=== PATIENT | female | born 1935 | race Caucasian/White ===

== ENCOUNTER 2022-05-19 08:41 | Outpatient (CLI) | payer MEDICARE, OTHER, SELFPAY ==
[2022-05-19 10:12] LABS: Albumin* 4.2 g/dL (3.3-5.0); Chloride* 103 mmol/L (96-114)
[2022-05-19 10:13] LABS: Potassium* 4.3 mmol/L (3.6-5.1); Sodium* 140 mmol/L (135-149)
[2022-05-19 10:15] LABS: Alkaline Phosphatase* 95 U/L (40-150); Aspartate Amino Transferase* 27 U/L (12-35); Bilirubin Total* 0.7 mg/dL (0.1-1.5); Blood Urea Nitrogen* 16 mg/dL (7-30); Carbon Dioxide* 28 mmol/L (20-32); Cholesterol* 166 mg/dL (90-199); Estimated Glomerular Filt Rate 55 ml/min
[2022-05-19 10:16] LABS: Alanine Aminotransferase* 6 U/L (4-35); Calcium* 9.6 mg/dL (8.4-10.6); Glucose* 88 mg/dL (60-115); HDL Cholesterol* 84 mg/dL (>=50); LDL Cholesterol Calculated 57 mg/dL (<100); Triglycerides* 125 mg/dL (40-149)
[2022-05-19 10:28] LABS: Vitamin D 25 Hydroxy* 53 ng/mL (30-80)
== END 2022-05-19 08:42 | disposition home or self-care (01) ==
PROVIDERS: PCP Family Medicine; Visit Provider Family Medicine
DX: E78.5 Hyperlipidemia, unspecified (principal); R53.83 Other fatigue; E55.9 Vitamin D deficiency, unspecified; G20 Parkinson's disease; K21.9 Gastro-esophageal reflux disease without esophagitis; F32.A Depression, unspecified; F41.9 Anxiety disorder, unspecified
CPT/HCPCS: 80053; 80061; 82306

== ENCOUNTER 2022-12-01 11:00 | Outpatient (RCR) | payer MEDICARE, OTHER, SELFPAY | END 2023-04-13 23:59 | disposition home or self-care (01) | PROVIDERS: PCP Family Medicine; Visit Provider Psychiatry & Neurology Neurology | DX: R47.02 Dysphasia (principal); Z51.89 Encounter for other specified aftercare | CPT/HCPCS: 92507; 92524 ==

== ENCOUNTER 2023-03-15 17:25 | Emergency (ER) | payer MEDICARE, OTHER, SELFPAY ==
[2023-03-15 17:29] VITALS: BP 157/79; PULSE 65; RESP 20; TEMP 36.4; O2SAT 100; BMI 23.3
--- NOTE | 2023-03-15 17:42 | ED.HEATRA ---
HPI - Head Injury General Time Seen by Provider: 17:42 Date Seen: 03/15/23 Chief complaint: Head Injury/Pain Stated complaint: Fall, hit head, laceration forehead Time Seen by Provider: 03/15/23 17:34 Source: patient and RN notes reviewed Mode of arrival: ambulatory Limitations: no limitations History of Present Illness HPI Narrative: Jasmin is an 88-year-old female with underlying Parkinson's disease that was in the garden and fell. She lost her balance, fell forward, hitting the left front side of her head and her left shoulder. She does not believe she lost consciousness. She has no internal headache but states the external head where she has a wound is sore. She is sure her tetanus is up-to-date within the last 10 years. She does endorse falling due to her Parkinson's, she shows me healing bruising on her right shoulder where she had a recent fall. She has left frontal head pain, sustained a superficial abrasion on her for red and then a smaller 1 on the upper portion of the zygomatic arch. Denies any visual changes, no neck pain. Denies any numbness tingling anywhere, no focal weakness. No other area was injured on discussion. They are wondering about a head CT. No blood thinners. MD Complaint: head injury and fall Onset (ago): minute(s) Mechanism of Injury: fall Place: home Loss of Consciousness: no Location of injury: frontal and face (small abrasion upper outer zygoma on left) Associated symptoms: denies other symptoms Related Data Home Medications Medication Instructions Recorded Confirmed carbidopa 25 mg-levodopa 100 mg 2 tab PO TID 05/26/22 03/15/23 tablet clobetasol 0.05 % topical ointment 1 topical PRN PRN 05/26/22 09/29/22 ketoconazole 2 % topical cream 1 applic topical DAILY 05/26/22 03/15/23 carbidopa 25 mg-levodopa 250 mg 1 tab PO QID 03/15/23 03/15/23 tablet Previous Rx's Medication Instructions Recorded cholecalciferol (vitamin D3) 25 1,000 unit PO DAILY #90 tabs 05/26/22 mcg (1,000 unit) tablet omeprazole 20 mg capsule,delayed 20 mg PO DAILY #90 caps 05/26/22 release rosuvastatin 5 mg tablet 5 mg PO .Bedtime #90 tabs 05/26/22 venlafaxine 225 mg tablet,extended 225 mg PO DAILY #90 tabs 05/26/22 release 24 hr Allergies Allergy/AdvReac Type Severity Reaction Status Date / Time lactose Allergy Intermediate Increased Verified 09/29/22 13:18 mucous accumulation penicillin V AdvReac Intermediate Rash Verified 09/29/22 13:18 Sulfa drugs Allergy Intermediate Headache Uncoded 09/29/22 13:18 Gluten Meal AdvReac Intermediate GI upset Uncoded 09/29/22 13:18 Review of Systems Status of ROS: Reports: 6 or more systems reviewed and unremarkable except as noted in History and below [facility] Medical History (Updated 03/15/23 @ 18:53 by Ericka Posey MD) Malrotation of small intestine (2010) ?Q43.3 - Congenital malformations of intestinal fixation (ICD-10) Adrenal adenoma ?D35.00 - Benign neoplasm of unspecified adrenal gland (ICD-10) Non-cardiac chest pain (05/20/09) ?R07.89 - Other chest pain (ICD-10) Irritable bowel syndrome (2010) ?K58.9 - Irritable bowel syndrome without diarrhea (ICD-10) Hypertension (2016) ?I10 - Essential (primary) hypertension (ICD-10) Headache (2017) ?R51.9 - Headache, unspecified (ICD-10) Collagenous colitis ?K52.831 - Collagenous colitis (ICD-10) Chronic disease anemia ?D63.8 - Anemia in other chronic diseases classified elsewhere (ICD-10) Surgical History (Updated 05/26/22 @ 11:48 by Marian Granados MD) Status post total replacement of hip (2016) ?Z96.649 - Presence of unspecified artificial hip joint (ICD-10) Status post excision of lipoma (09/2019) ?Z98.890 - Other specified postprocedural states (ICD-10) ?Z86.018 - Personal history of other benign neoplasm (ICD-10) History of hysterectomy (1977) ?Z90.710 - Acquired absence of both cervix and uterus (ICD-10) History of esophagogastroduodenoscopy (EGD) (2010) ?Z98.890 - Other specified postprocedural states (ICD-10) History of cholecystectomy (2004) ?Z90.49 - Acquired absence of other specified parts of digestive tract (ICD-10) History of section (1971) ?Z98.891 - History of uterine scar from previous surgery (ICD-10) History of breast biopsy (1986) ?Z98.890 - Other specified postprocedural states (ICD-10) History of appendectomy (1951) ?Z90.49 - Acquired absence of other specified parts of digestive tract (ICD-10) Family History (Updated 04/29/22 @ 08:58 by Kemi Isidro) Mother Stroke Sister Colon cancer, Onset Age: 38 Father Myocardial infarction, Onset Age: 69 Social History (Updated 04/29/22 @ 08:59 by Kemi Isidro) Narrative: Does not drink alcohol Does not have regular exercise regimen , retired from [employer], 4 adult kids Non-smoker Smoking Status: Never smoker Do you use any of these nicotine containing products: None Second hand tobacco smoke exposure: No How often do you have a drink containing alcohol: never AUDIT-C Alcohol total score: 0 Non-prescribed substance use: denies use Little interest or pleasure in doing things: several days Feeling down, depressed, or hopeless: several days Exam Const: Vital Signs, click to edit/add: Vital Signs - 24 hr 03/15/23 17:29 Temperature 97.5 F L Pulse Rate [Pulse Oximeter] 65 Respiratory Rate 20 Blood Pressure [Ri ght Upper Arm] 157/79 H Pulse Oximetry 100 Documenting provider has reviewed patient's vital signs: yes Common normals: no apparent distress, average body habitus, oriented x3, no limitations, healthy appearing and alert General appearance: cooperative, comfortable, well kempt and well developed HENMT: Common normals: hearing grossly normal bilaterally, external ears normal, external nose normal, nasal mucous membranes and turbinates normal, moist oral mucous membranes, oropharynx normal, dentition normal and gingiva normal Nose: external nose normal and nasal mucous membranes and turbinates normal External ear: external ears normal Other: Has superficial abrasion on the left frontal forehead just above left outer eyebrow. Smaller one of skin overlying the upper outer aspect of the zygomatic arch, no notable swelling or bruising at this time, only tender along wound. TMJ opens/closes without difficulty. Eye: Common normals: PERRL, EOMs intact bilaterally, conjunctivae normal and no scleral icterus Conjunctiva: conjunctiva(e) normal Pupil: PERRL Neck & C-Spine: Common normals: full ROM (no midline tenderness), no lymphadenopathy and supple Chest: Common normals: inspection of chest normal and palpation of chest normal Other: Does have bruise that is noted over the lateral clavicle, AC joint. Shoulder has full ROM, is painful over the bruised area. Strength, sensation normal. Resp: Common normals: normal respiratory effort, no retractions, no use of accessory muscles and clear to auscultation bilaterally Auscultation: clear to auscultation bilaterally Cardio: Common normals: regular rate, regular rhythm, S1 normal heart sound, S2 normal heart sound, no gallops, no clicks and no murmurs Rate: regular rate Rhythm: regular rhythm Heart sounds: S1 normal and S2 normal GI: Common normals: Normal to inspection, nondistended, normoactive bowel sounds present, soft to palpation, non-tender, no hepatosplenomegaly and no masses Palpation: soft and no hepatosplenomegaly Neuro: Common normals: oriented x3, moves all extremities, no focal motor deficits and no sensory deficits noted Sensorium/orientation: alert Psych: Appearance: well kempt Course Course Hospital Course: Reviewed neuroimaging for head injury with CT. They really would like to proceed, do believe at age 88, benefits of imaging certainly outweigh any significant risks. We will also xray left shoulder given injury. Reevaluation(s) Time of Reevaluation #1: 19:30 Reevaluation #1: Have reviewed negative head CT imaging and shoulder imaging. They are happy to hear this. Will discharge to home. Vital Signs Vital signs: Initial Vital Signs Temperature 97.5 F L 03/15/23 17:29 Temperature Source Temporal Artery Scan 03/15/23 17:29 Pulse Rate 65 03/15/23 17:29 Respiratory Rate 20 03/15/23 17:29 Blood Pressure 157/79 H 03/15/23 17:29 Blood Pressure Mean 105 03/15/23 17:29 Blood Pressure Position Sitting 03/15/23 17:29 Pulse Oximetry 100 03/15/23 17:29 Vital Signs Temperature 97.5 F L 03/15/23 17:29 Pulse Rate 65 03/15/23 17:29 Respiratory Rate 20 03/15/23 17:29 Blood Pressure 157/79 H 03/15/23 17:29 Pulse Oximetry 100 03/15/23 17:29 Temperature 97.5 F L 03/15/23 17:29 Pulse Rate 65 03/15/23 17:29 Respiratory Rate 20 03/15/23 17:29 Blood Pressure 157/79 H 03/15/23 17:29 Pulse Oximetry 100 03/15/23 17:29 MDM - Head Injury Imaging Data CT scan - head: Attestation: I have reviewed the pertinent imaging results. Radiologist's impression: Patient: JASMIN DUFFY Facility:?[facility] Patient ID:?[id number] Site Patient ID:?[id number]. Site :?[id number] Study:?CT Head W/O-03/15/2023 6:03:40 PM Ordering Physician:Kirsten Barnett Final Report: INDICATION: Fall. TECHNIQUE: Head CT without contrast. COMPARISON: None. FINDINGS: CSF spaces: Within normal limits for age. Brain parenchyma and extra-axial spaces: There are nonspecific low attenuation white matter changes consistent with chronic microvascular disease. No sign of mass, hemorrhage, or midline shift. Skull base and calvarium: The visualized paranasal sinuses and mastoid air cells demonstrate no acute or significant findings. The visualized orbits are grossly unremarkable. No skull fractures. IMPRESSION: No acute intracranial process identified. No skull fractures. No intracranial hemorrhage. Please note that all CT scans at this facility use dose modulation, iterative reconstruction, and/or weight-based dosing when appropriate to reduce radiation dose to as low as reasonably achievable. Dictated by John Cartagena MD @ 03/15/2023 6:46:03 PM (Electronic Signature) XR left shoulder: Attestation: I have reviewed the pertinent imaging results. My impression: I see no acute pathology on my preliminary review of her shoulder x-ray. Radiologist's impression: Patient: JASMIN DUFFY Facility:?[facility] Patient ID:?[id number] Site Patient ID:?[id number]. Site :?[id number] Study:?XRay Shoulder Left 3 view-03/15/2023 6:14:09 PM Ordering Physician:Kirsten Barnett Final Report: INDICATION: Trauma, fall. TECHNIQUE: Left shoulder 3 views. COMPARISON: Left humerus radiographs 09/29/2022. FINDINGS: No acute fractures or malalignment. Mild AC joint degenerative changes. Glenohumeral joint is unremarkable. Soft tissues are unremarkable. IMPRESSION: No acute osseous abnormalities. Dictated by Shoaib Laguerre MD @ 03/15/2023 7:04:47 PM (Electronic Signature) Discharge Plan Discharge Clinical Impression: Acute pain of left shoulder, Abrasion of face, Fall, Closed head injury without loss of consciousness Patient Disposition: Home, Self-Care Condition: Stable Instructions: Fall Prevention for Older Adults (ED), Head Injury (ED), Abrasion (ED), Shoulder Pain (ED) Additional Instructions: Use bacitracin or Vaseline at minimum 3 to 4 times a day to the abrasions on your face. Use this until these wounds are healed. If you are worried about infection starting in these wounds, please seek re-evaluation. Use Tylenol per bottle directions for any discomfort. If you have increasing shoulder pain, do recommend follow-up with her primary care provider and may need to undergo physical therapy. Prescriptions: No Action carbidopa-levodopa 25-100 mg tablet 2 tab PO TID clobetasol 0.05 % ointment 1 topical PRN PRN Rx Instructions: APPLY SPARINGLY TO AFFECTED AREA ketoconazole 2 % cream 1 applic topical DAILY omeprazole 20 mg capsule,delayed release(DR/EC) 20 mg PO DAILY Qty: 90 4RF cholecalciferol (vitamin D3) 25 mcg (1,000 unit) tablet 1,000 unit PO DAILY Qty: 90 4RF rosuvastatin 5 mg tablet 5 mg PO .Bedtime Qty: 90 4RF venlafaxine 225 mg tablet extended release 24hr 225 mg PO DAILY Qty: 90 4RF carbidopa-levodopa 25-250 mg tablet 1 tab PO QID Follow Up/Referrals: Marian Granados MD [Primary Care Provider] - Stand Alone Forms: [employer] Info Instructions
--- NOTE | 2023-03-15 17:51 | CRLHL7_ITS ---
For Patients: As a result of the Century Cures Act, medical imaging exams and procedure reports are released immediately into your electronic medical record. You may view this report before your referring provider. If you have questions, please contact your health care provider. INDICATION: Fall. TECHNIQUE: Head CT without contrast. COMPARISON: None. FINDINGS: CSF spaces: Within normal limits for age. Brain parenchyma and extra-axial spaces: There are nonspecific low attenuation white matter changes consistent with chronic microvascular disease. No sign of mass, hemorrhage, or midline shift. Skull base and calvarium: The visualized paranasal sinuses and mastoid air cells demonstrate no acute or significant findings. The visualized orbits are grossly unremarkable. No skull fractures. IMPRESSION: No acute intracranial process identified. No skull fractures. No intracranial hemorrhage. Please note that all CT scans at this facility use dose modulation, iterative reconstruction, and/or weight-based dosing when appropriate to reduce radiation dose to as low as reasonably achievable. Dictated by John Cartagena MD @ 03/15/2023 6:46:03 PM (Electronically Signed)
--- NOTE | 2023-03-15 17:51 | CRLHL7_ITS ---
For Patients: As a result of the Cures Act, medical imaging exams and procedure reports are released immediately into your electronic medical record. You may view this report before your referring provider. If you have questions, please contact your health care provider. INDICATION: Trauma, fall. TECHNIQUE: Left shoulder 3 views. COMPARISON: Left humerus radiographs 09/29/2022. FINDINGS: No acute fractures or malalignment. Mild AC joint degenerative changes. Glenohumeral joint is unremarkable. Soft tissues are unremarkable. IMPRESSION: No acute osseous abnormalities. Dictated by Shoaib Laguerre MD @ 03/15/2023 7:04:47 PM (Electronically Signed)
[2023-03-15 19:38] VITALS: BP 177/75; PULSE 57; RESP 18; O2SAT 97
== END 2023-03-15 19:41 | disposition home or self-care (01) ==
PROVIDERS: Emergency Provider Family Medicine; PCP Family Medicine
DX: S00.81XA Abrasion of other part of head, initial encounter (principal); M25.512 Pain in left shoulder; S06.0X0A Concussion without loss of consciousness, initial encounter; W19.XXXA Unspecified fall, initial encounter
CPT/HCPCS: 70450; 73030; 99284

== ENCOUNTER 2023-03-17 17:55 | Observation (INO) | payer MEDICARE, OTHER, SELFPAY ==
[2023-03-17] VITALS (37 sets, daily range): BP systolic 137–200; BP diastolic 74–148; PULSE 61–95; RESP 16; TEMP 36.7–37.1; O2SAT 91–100; BMI 23.3; BMI 23.7
--- NOTE | 2023-03-17 18:17 | CRLHL7_ITS ---
For Patients: As a result of the Cures Act, medical imaging exams and procedure reports are released immediately into your electronic medical record. You may view this report before your referring provider. If you have questions, please contact your health care provider. INDICATION: FALL. WEAKNESS. CT CERVICAL SPINE WITHOUT CONTRAST TECHNIQUE: Multidetector axial CT imaging was performed through the cervical spine, without contrast. Sagittal and coronal reconstructions were generated. FINDINGS: No acute fractures are identified. Multilevel degenerative change is noted in the cervical spine, including degenerative disc disease at C5-6 and C6-7, and scattered facet joint degenerative changes. Osseous alignment is within normal limits and no subluxation is seen. Prevertebral soft tissues are unremarkable. Included portions of the airway and lung apices are within normal limits. IMPRESSION: 1. No fracture, subluxation, or other acute finding identified. 2. Cervical spondylosis, as noted above. ILYA LITTLE MD [facility] Please note that all CT scans at this facility use dose modulation, iterative reconstruction, and/or weight-based dosing when appropriate to reduce radiation dose to as low as reasonably achievable. Dictated by: Josh Little MD @ 03/17/2023 19:15:16 (Electronically Signed)
--- NOTE | 2023-03-17 18:21 | CRLHL7_ITS ---
For Patients: As a result of the Cures Act, medical imaging exams and procedure reports are released immediately into your electronic medical record. You may view this report before your referring provider. If you have questions, please contact your health care provider. CLINICAL HISTORY: Fall; weakness. TECHNIQUE: CTA neck with contrast bolus tracking. 3D angiographic rendering using maximum intensity projection (MIP) and images permanently archived. COMPARISON: None available. FINDINGS: The great vessels are patent. The common carotid arteries are patent. The proximal ICAs are patent without signficant stenoses by NASCET criteria. The more distal cervical ICAs are patent. The origins of the vertebral arteries are patent. The cervical segments of the vertebral arteries are patent. IMPRESSION: Patent cervical arterial vasculature without hemodynamically significant luminal stenosis. Please note that all CT scans at this facility use dose modulation, iterative reconstruction, and/or weight-based dosing when appropriate to reduce radiation dose to as low as reasonably achievable. Dictated by Raul Cordova MD @ 03/18/2023 5:23:58 PM (Electronically Signed)
--- NOTE | 2023-03-17 18:21 | CRLHL7_ITS ---
For Patients: As a result of the Century Cures Act, medical imaging exams and procedure reports are released immediately into your electronic medical record. You may view this report before your referring provider. If you have questions, please contact your health care provider. INDICATION: FALL. WEAKNESS. CT HEAD WITHOUT CONTRAST TECHNIQUE: Multiple axial CT images were performed through the head without intravenous contrast administration. COMPARISON: 03/15/[address] FINDINGS: No acute intracranial hemorrhage is identified. No extra-axial collections are evident and there is no mass effect or midline shift. There is mild diffuse age-related brain atrophy. Ventricular size and configuration are within normal limits for the patient`s age. Emmanuel-white differentiation is within normal limits. There is unchanged patchy hypodensity in the periventricular white matter, a nonspecific finding which most likely reflects chronic small vessel ischemic change. No fractures are seen. Included portions of the paranasal sinuses and mastoid air cells are normally aerated. IMPRESSION: 1. No acute intracranial abnormality identified. 2. Mild age-related brain atrophy and white matter hypodensity consistent with chronic small vessel ischemic change. ILYA LITTLE MD [facility] Please note that all CT scans at this facility use dose modulation, iterative reconstruction, and/or weight-based dosing when appropriate to reduce radiation dose to as low as reasonably achievable. Dictated by: Josh Little MD @ 03/17/2023 19:07:18 (Electronically Signed)
--- NOTE | 2023-03-17 18:21 | CRLHL7_ITS ---
For Patients: As a result of the Century Cures Act, medical imaging exams and procedure reports are released immediately into your electronic medical record. You may view this report before your referring provider. If you have questions, please contact your health care provider. CLINICAL HISTORY: Fall; weakness. TECHNIQUE: CTA head with contrast bolus tracking. 3D angiographic rendering using maximum intensity projection (MIP) and images permanently archived. COMPARISON: None available. FINDINGS: The petrous, cavernous, and supraclinoid segments of the internal carotid arteries are patent. The anterior and middle cerebral arteries are patent. The anterior communicating artery is visualized and is within normal limits. The intracranial vertebral arteries, basilar trunk, and posterior cerebral arteries are patent. No intracranial proximal large vessel occlusion or flow-limiting luminal stenosis. No evidence of cerebral aneurysm. No findings to suggest an arterial-venous shunting lesion. IMPRESSION: No intracranial proximal large vessel occlusion, flow-limiting luminal stenosis, or cerebral aneurysm. Please note that all CT scans at this facility use dose modulation, iterative reconstruction, and/or weight-based dosing when appropriate to reduce radiation dose to as low as reasonably achievable. Dictated by Raul Cordova MD @ 03/18/2023 5:26:03 PM (Electronically Signed)
--- NOTE | 2023-03-17 18:27 | ED.GENADULT ---
HPI - General Adult General Chief complaint: Altered Mental Status Stated complaint: fell hit head on 03/15/23 confusion Time Seen by Provider: 03/17/23 18:11 History of Present Illness HPI narrative: Patient has some difficulty finding words so history mostly provided by son. Report a fall a couple of days ago and was feeling fine, did have normal CT at that time, then today just now was outside with daughter?in-law and was not self. Had difficulty talking and finding words. MD called into bedside. 88-year-old woman presenting to the emergency department with son with concern of 1 hour of difficulty with word finding and just being ?goofy?. Was seen here 2 days ago after a closed head injury and fall. Head CT at that time was unremarkable for acute injury. She is not endorsing any particular pain. No fevers. No marked headache. No neck or back pain. No nausea noted. Blood pressures were noted to be elevated. She is not having any focal weakness. This was witnessed onset. For underlying dementia had taken her Sinemet shortly before. Related Data Home Medications Medication Instructions Recorded Confirmed clobetasol 0.05 % topical ointment 1 applic topical PRN PRN 05/26/22 03/18/23 ketoconazole 2 % topical cream 1 applic topical DAILY PRN 05/26/22 03/18/23 carbidopa 25 mg-levodopa 250 mg 1 tab PO QID@08,12,16,20 03/15/23 03/18/23 tablet rosuvastatin 5 mg tablet 5 mg PO HS 03/18/23 03/18/23 venlafaxine 150 mg 150 mg PO DAILY 03/18/23 03/18/23 capsule,extended release 24 hr venlafaxine 75 mg capsule,extended 75 mg PO DAILY 03/18/23 03/18/23 release 24 hr Previous Rx's Medication Instructions Recorded cholecalciferol (vitamin D3) 25 1,000 unit PO DAILY #90 tabs 05/26/22 mcg (1,000 unit) tablet omeprazole 20 mg capsule,delayed 20 mg PO DAILY #90 caps 05/26/22 release aspirin 81 mg tablet,delayed 81 mg PO DAILY #100 tabs 03/18/23 release Allergies Allergy/AdvReac Type Severity Reaction Status Date / Time lactose Allergy Intermediate Increased Verified 03/17/23 19:12 mucous accumulation penicillin V AdvReac Intermediate Rash Verified 03/17/23 19:12 Sulfa drugs Allergy Intermediate Headache Uncoded 03/17/23 19:12 Gluten Meal AdvReac Intermediate GI upset Uncoded 03/17/23 19:12 Review of Systems Status of ROS: Reports: 6 or more systems reviewed and unremarkable except as noted in History and below [facility] Medical History (Updated 03/18/23 @ 13:44 by Jay Garcia MD) Dementia ?F03.90 - Unspecified dementia, unspecified severity, without behavioral disturbance, psychotic disturbance, mood disturbance, and anxiety (ICD-10) Parkinson's disease (2019) ?G20 - Parkinson's disease (ICD-10) Vitamin D deficiency ?E55.9 - Vitamin D deficiency, unspecified (ICD-10) Gastroesophageal reflux disease ?K21.9 - Gastro-esophageal reflux disease without esophagitis (ICD-10) Dyslipidemia ?E78.5 - Hyperlipidemia, unspecified (ICD-10) Depression (~1998) ?F32.A - Depression, unspecified (ICD-10) Anxiety (04/2020) ?F41.9 - Anxiety disorder, unspecified (ICD-10) Anogenital lichen sclerosus ?L90.0 - Lichen sclerosus et atrophicus (ICD-10) Malrotation of small intestine (2010) ?Q43.3 - Congenital malformations of intestinal fixation (ICD-10) Adrenal adenoma ?D35.00 - Benign neoplasm of unspecified adrenal gland (ICD-10) Non-cardiac chest pain (05/20/09) ?R07.89 - Other chest pain (ICD-10) Irritable bowel syndrome (2010) ?K58.9 - Irritable bowel syndrome without diarrhea (ICD-10) Hypertension (2016) ?I10 - Essential (primary) hypertension (ICD-10) Headache (2017) ?R51.9 - Headache, unspecified (ICD-10) Collagenous colitis ?K52.831 - Collagenous colitis (ICD-10) Chronic disease anemia ?D63.8 - Anemia in other chronic diseases classified elsewhere (ICD-10) Surgical History Status post total replacement of hip (2016) ?Z96.649 - Presence of unspecified artificial hip joint (ICD-10) Status post excision of lipoma (09/2019) ?Z98.890 - Other specified postprocedural states (ICD-10) ?Z86.018 - Personal history of other benign neoplasm (ICD-10) History of hysterectomy (1977) ?Z90.710 - Acquired absence of both cervix and uterus (ICD-10) History of esophagogastroduodenoscopy (EGD) (2010) ?Z98.890 - Other specified postprocedural states (ICD-10) History of cholecystectomy (2004) ?Z90.49 - Acquired absence of other specified parts of digestive tract (ICD-10) History of section (1971) ?Z98.891 - History of uterine scar from previous surgery (ICD-10) History of breast biopsy (1986) ?Z98.890 - Other specified postprocedural states (ICD-10) History of appendectomy (1951) ?Z90.49 - Acquired absence of other specified parts of digestive tract (ICD-10) Family History Mother Stroke Sister Colon cancer, Onset Age: 38 Father Myocardial infarction, Onset Age: 69 Social History Narrative: Does not drink alcohol Does not have regular exercise regimen , retired from [employer], 4 adult kids Non-smoker What is your current living situation: I presently have a place to live Problems where you live: no known problems Problems where you live details: n/a In the past 12 months, utilities in danger of being shut off: no In the past 12 mos, have been you worried that your food would run out before you had money to buy more?: never true In the past 12 mos, the food you bought just didn't last and you didn't have money to buy more?: never true Highest level of school completed/degree received: high school graduate Smoking Status: Never smoker Do you use any of these nicotine containing products: None Second hand tobacco smoke exposure: No How often do you have a drink containing alcohol: never How often do you have six or more drinks on one occasion: Never AUDIT-C Alcohol total score: 0 Non-prescribed substance use: denies use Caffeine: Yes How often does anyone, including family, friends and others, physically hurt you: How often does anyone, including family, friends and others, insult or talk down to you: How often does anyone, including family, friends and others, threaten you with harm: How often does anyone, including family, friends and others, scream or curse at you: Little interest or pleasure in doing things: several days Feeling down, depressed, or hopeless: several days service: No Exam Narrative: Exam Narrative: Pleasant. NAD. Does seem a little confused. Demonstrating mild expressive aphasia. Subtle slurring perhaps to her words. She is moving all extremities without difficulty. They are well perfused. There is a bruise on the right mid forearm. She has marked bruising above the left eye/left brow area. Cranial nerves 2-12 are intact. Elevated heart rate in a regular rhythm. Lungs appear to be clear. Abdomen is protuberant soft nontender. No fluid in external ear canals. Const: Vital Signs, click to edit/add: Vital Signs - 24 hr 03/17/23 18:16 03/17/23 18:19 03/17/23 18:20 Temperature 98.8 F Pulse Rate 80 71 Pulse Rate [Pulse Oximeter] 95 Respiratory Rate 16 Blood Pressure 149/85 H Blood Pressure [Ri ght Upper Arm] 149/85 H Pulse Oximetry 95 99 100 Oxygen Delivery Me thod Room Air 03/17/23 18:50 03/17/23 18:51 03/17/23 18:55 Temperature Pulse Rate 81 83 73 Pulse Rate [Pulse Oximeter] Respiratory Rate Blood Pressure 176/79 H 170/80 H Blood Pressure [Ri ght Upper Arm] Pulse Oximetry 100 99 98 Oxygen Delivery Me thod 03/17/23 19:00 03/17/23 19:01 03/17/23 19:02 Temperature Pulse Rate 77 67 61 Pulse Rate [Pulse Oximeter] Respiratory Rate Blood Pressure 162/75 H Blood Pressure [Ri ght Upper Arm] Pulse Oximetry 100 97 92 Oxygen Delivery Me thod 03/17/23 19:15 03/17/23 19:16 03/17/23 19:17 Temperature Pulse Rate 75 78 67 Pulse Rate [Pulse Oximeter] Respiratory Rate Blood Pressure 169/86 H Blood Pressure [Ri ght Upper Arm] Pulse Oximetry 98 99 98 Oxygen Delivery Me thod 03/17/23 19:30 03/17/23 19:32 03/17/23 19:45 Temperature Pulse Rate 77 76 79 Pulse Rate [Pulse Oximeter] Respiratory Rate Blood Pressure 168/82 H Blood Pressure [Ri ght Upper Arm] Pulse Oximetry 91 94 98 Oxygen Delivery Me thod 03/17/23 19:46 03/17/23 20:00 03/17/23 20:01 Temperature Pulse Rate 73 69 79 Pulse Rate [Pulse Oximeter] Respiratory Rate Blood Pressure 172/85 H 178/82 H Blood Pressure [Ri ght Upper Arm] Pulse Oximetry 98 100 99 Oxygen Delivery Me thod 03/17/23 20:22 03/17/23 20:23 Temperature Pulse Rate 83 82 Pulse Rate [Pulse Oximeter] Respiratory Rate Blood Pressure 200/96 H Blood Pressure [Ri ght Upper Arm] Pulse Oximetry 97 98 Oxygen Delivery Me thod Documenting provider has reviewed patient's vital signs: yes Course Course Hospital Course: 88-year-old female admitted to the hospital with an episode of expressive aphasia and altered mental status. This resolved relatively early into her hospital admission. Evaluation included emergent head CT and CT angiogram which were unremarkable. Brain MRI showed atrophy and chronic age related changes without evidence of stroke. She had no recurrent symptoms during hospital stay. Therapy evaluated her and noted that she was somewhat unsteady walking with a walker. Apparently does not reliably use a walker at home. There was a question of whether this could be related to a concussion from a fall that occurred 2 days prior to admission. Initially recommended that there be standby assistance for her when she was up with her walker. She also had a Meade score of 13/30. There was a question of whether this was her best effort and recommendation was that there be outpatient follow-up and possibly repeating this in the future. Though this may not have been her best effort it is likely that she has dementia which is probably progressive. I discussed with patient and family the likelihood that she would need increased assistance. At this time we are recommending assistance with medications and closer supervision in the home. Will have PT and OT and home nursing go into her home to assess for safety and improve mobility Vital Signs Vital signs: Initial Vital Signs Temperature 98.8 F 03/17/23 18:16 Temperature Source Temporal Artery Scan 03/17/23 18:16 Pulse Rate 95 03/17/23 18:16 Respiratory Rate 16 03/17/23 18:16 Blood Pressure 149/85 H 03/17/23 18:16 Blood Pressure Mean 106 H 03/17/23 18:16 Pulse Oximetry 95 03/17/23 18:16 Oxygen Delivery Method Room Air 03/17/23 18:16 Vital Signs Temperature 98.8 F 03/17/23 18:16 Pulse Rate 95 03/17/23 18:16 Respiratory Rate 16 03/17/23 18:16 Blood Pressure 149/85 H 03/17/23 18:16 Pulse Oximetry 95 03/17/23 18:16 Oxygen Delivery Method Room Air 03/17/23 18:16 Temperature 98 F 03/18/23 11:00 Pulse Rate 66 03/18/23 11:00 Respiratory Rate 16 03/18/23 11:00 Blood Pressure 138/88 03/18/23 11:00 Pulse Oximetry 96 03/18/23 11:00 Oxygen Delivery Method Room Air 03/18/23 11:00 Medical Decision Making MDM Narrative Medical decision making narrative: Does appear to have some stroke-like symptoms. Recent fall certainly raises concern for intracranial bleed however symptoms seem more consistent with ischemic CVA or possibly more global affected by an infectious or electrolyte abnormalities. This could also be dementia-related. Will stab wish IV. Will be receiving a L of normal saline. Monitored. Labs pending. On reassessment now about 2-1/2 hours from onset. Nearly entire L is in. This seems to have more energy. Articulating her words more clearly. More fluid with thought/expression. Son still feels she is having trouble with some mild difficulty with word finding occasionally. Labs are essentially unremarkable. Had been waiting for urinalysis which looks normal. Discussed with Neurology. Recommending for admission next level imaging and continuing stroke workup. Unclear if this is related to dementia or ischemic event. Lab Data Lab results reviewed: Yes I reviewed the patient's lab results Labs: Lab Results 03/17/23 03/17/23 Range/Units 18:30 20:20 WBC 5.32 (4.50-11.00) K/uL RBC 3.83 L (4.00-5.20) m/uL Hgb 11.9 L (12.0-16.0) gm/dL Hct 36.9 (33.0-51.0) % MCV 96 (80-100) fL MCH 31 (26-34) pg MCHC 32 (32-36) gm/dL RDW Coeff of Jackelyn 12.9 (11.5-15.5) % Plt Count 194 (140-440) K/uL Neut % (Auto) 56.7 (42.0-72.0) % Lymph % (Auto) 30.5 (20-44) % [place] % (Auto) 8.8 (0.0-11.0) % Eos % (Auto) 3.4 (0.0-7.0) % Baso % (Auto) 0.6 (0.0-3.0) % Neut # (Auto) 3.02 (1.7-7.0) K/uL Lymph # (Auto) 1.62 (0.90-2.90) K/uL [place] # (Auto) 0.50 (0.00-0.90) K/UL Eos # (Auto) 0.18 (0.00-0.50) K/uL Baso # (Auto) 0.03 (0.00-0.30) K/uL Sodium 137 (135-149) mmol/L Potassium 4.0 (3.6-5.1) mmol/L Chloride 102 (96-114) mmol/L Carbon Dioxide 29 (20-32) mmol/L BUN 19 (7-30) mg/dL Creatinine 0.9 (0.5-1.5) mg/dL Estimated Creat Clear 36.34 Estimated GFR 62 ml/min Glucose 97 (60-115) mg/dL Calcium 9.9 (8.4-10.6) mg/dL Magnesium 1.9 (1.5-2.6) mg/dL Total Bilirubin 0.8 (0.1-1.5) mg/dL Direct Bilirubin 0.3 (0.0-0.5) mg/dL AST 35 (12-35) U/L ALT 9 (4-35) U/L Alkaline Phosphatase 85 (40-150) U/L Troponin I < 0.01 L (0.01-0.04) ng/mL C-Reactive Protein < 0.5 L (0.5-1.0) mg/dL NT-Pro-B Natriuret Pep 223 pg/mL Total Protein 7.2 (6.0-8.3) g/dL Albumin 4.4 (3.3-5.0) g/dL TSH 2.880 (0.270-4.20) uIU/mL Urine Color Yellow (Yellow) Urine Appearance Clear (Clear) Urine pH 8.5 (5.0-8.5) Ur Specific [place] 1.010 (1.000-1.030) Urine Protein Negative (Negative) Urine Glucose (UA) Negative (Negative) Urine Ketones Trace A (Negative) Urine Blood Negative (Negative) Urine Nitrite Negative (Negative) Urine Bilirubin Negative (Negative) Urine Urobilinogen 0.2 (0.2-1.0) Ur Leukocyte Esterase Negative (Negative) Urine RBC 0-2 (0-2) Urine WBC 0-2 (0-5) Ur Squamous Epith Cells None (None-Few) Urine Bacteria None (None) Ethyl Alcohol < 0.01 L (0.01-0.03) % ECG Data Attestation: I personally reviewed and interpreted this ECG as follows: (Sinus rhythm. Premature ventricular contraction. Rate of 75. I do not appreciate ischemic changes otherwise) Critical Care Time Critical Care Time Critical Care Time: Yes Attestation: The patient required my highest level preparedness to intervene emergently and I personally spent this critical care time directly and personally managing the patient. This critical care time included: Obtaining a history; Examining the patient; Pulse oximetry; Ordering and reviewing of studies; Arranging urgent treatment with development of a management plan; Evaluation of patients response to treatment; Frequent reassessment discussions with other providers. This critical care time was performed to assess and manage the high probability of imminent life-threatening deterioration that could result in multiorgan failure. It was exclusive of separate billable procedures and treating other patients and teaching time. Total Critical Care Time in Minutes: 45 Discharge Plan Discharge Clinical Impression: Expressive aphasia, AMS (altered mental status) Patient Disposition: Admitted As Inpatient Condition: Improved Activity Level: No Restrictions and Use Walker Discharge Diet: Regular
[2023-03-17 18:43] LABS: Basophils Absolute Auto 0.03 K/uL (0.00-0.30); Basophils Percent Auto 0.6 % (0.0-3.0); Eosinophils Absolute Auto 0.18 K/uL (0.00-0.50); Eosinophils Percent Auto 3.4 % (0.0-7.0); Hematocrit 36.9 % (33.0-51.0); Hemoglobin* 11.9 gm/dL (12.0-16.0); Lymphocytes Absolute Auto 1.62 K/uL (0.90-2.90); Lymphocytes Percent Auto 30.5 % (20-44); Mean Corpuscular HGB Conc 32 gm/dL (32-36); Mean Corpuscular Hemoglobin 31 pg (26-34); Mean Corpuscular Volume 96 fL (80-100); Monocytes Percent Auto 8.8 % (0.0-11.0); Neutrophils Absolute Auto 3.02 K/uL (1.7-7.0); Neutrophils Percent Auto 56.7 % (42.0-72.0); Platelet Count* 194 K/uL (140-440); RDW Coefficient of Variation % 12.9 % (11.5-15.5); Red Blood Count 3.83 m/uL (4.00-5.20); White Blood Count* 5.32 K/uL (4.50-11.00)
[2023-03-17 18:51] LABS: Slide Review Reflex No
[2023-03-17] MEDS: 0.9 % SODIUM CHLORIDE 1000 ml 1,000 ML IV (18:57)
[2023-03-17 19:07] LABS: Albumin* 4.4 g/dL (3.3-5.0); Chloride* 102 mmol/L (96-114); Sodium* 137 mmol/L (135-149)
[2023-03-17 19:10] LABS: Carbon Dioxide* 29 mmol/L (20-32); Creatinine* 0.9 mg/dL (0.5-1.5); Est. Creatinine Clearance* 36.34; Estimated Glomerular Filt Rate 62 ml/min
[2023-03-17 19:11] LABS: Alanine Aminotransferase* 9 U/L (4-35); Alkaline Phosphatase* 85 U/L (40-150); Aspartate Amino Transferase* 35 U/L (12-35); Bilirubin Direct* 0.3 mg/dL (0.0-0.5); Bilirubin Total* 0.8 mg/dL (0.1-1.5); Blood Urea Nitrogen* 19 mg/dL (7-30); Calcium* 9.9 mg/dL (8.4-10.6); Glucose* 97 mg/dL (60-115); Magnesium* 1.9 mg/dL (1.5-2.6); Total Protein* 7.2 g/dL (6.0-8.3)
[2023-03-17 19:13] LABS: Ethanol* < 0.01 % (0.01-0.03)
[2023-03-17 19:18] LABS: C Reactive Protein* < 0.5 mg/dL (0.5-1.0); NT Pro B Type NatriureticPept* 223 pg/mL
[2023-03-17 19:21] LABS: Troponin I* < 0.01 ng/mL (0.01-0.04)
[2023-03-17 20:31] LABS: Appearance Urine Clear (Clear); Bilirubin Urine Negative (Negative); Blood Urine Negative (Negative); Color Urine Yellow (Yellow); Glucose Urine Negative (Negative); Ketones Urine Trace (Negative); Leukocyte Esterase Urine Negative (Negative); Nitrite Urine Negative (Negative); Protein Urine Negative (Negative); Urobilinogen Urine 0.2 (0.2-1.0); pH Urine 8.5 (5.0-8.5)
[2023-03-17 20:39] LABS: RBC Urine 0-2 (0-2); WBC Urine 0-2 (0-5)
--- NOTE | 2023-03-17 22:58 | P.IMHP_ITS ---
Hospitalist- H&P: HPI History of Present Illness Time Seen by Provider: 21:30 Date Seen: 03/17/23 Chief complaint: Transient episode of expressive aphasia Narrative: Jasmin Rice is a 88 year old woman for the most part was in her usual state of health until 5:30 p.m. today. At that time she was sitting outdoors and stood up to go back in the house when her noticed she was not speaking per usual. She seemed not able to find the words that she was looking for. He decided to bring her in promptly to the emergency department. He thought perhaps she seemed a little more confused than usual as well. By the time she arrived here her symptoms were already starting to improve. By the time I see her this evening she, her , and their son indicate that her symptoms have all totally abated. Denies headache. Denies any other cranial nerve involvement. No other focal motor neurologic deficits either. Has baseline difficulties with walking which family ascribes to her known Parkinson disease. Remarkably 2 days ago she did stumble and fall while gardening and struck her head. Did not have loss of consciousness. Sustained a contusion with residual ecchymoses about her left eye and forehead and cheek. Evaluation emergency department was negative including CT scan. Has been doing well since then. Review of Systems Status of ROS: Reports: 10 or more systems reviewed and unremarkable except as noted in History and below Narrative: Denies chest heaviness, pressure, tightness, or pain. Denies dyspnea at rest, paroxysmal nocturnal dyspnea, orthopnea. Denies syncope or near-syncope. Denies orthostasis, lightheadedness, vertigo. Denies nausea vomiting. Denies fevers, rigors, diaphoresis. Denies edema or claudication. Denies palpitations or chest fluttering. Bowel and bladder habits are satisfactory. No recent weight gain or weight loss. Denies night sweats. Eating and drinking well. Denies dysphagia, odynophagia, dyspepsia, abdominal pain, diarrhea, or constipation. Denies dysuria, urgency, frequency, hematuria. Denies polyuria, polydipsia, polyphagia. Denies heat or cold intolerance. Denies myalgias, arthralgias. Acknowledges baseline difficulty with walking which she ascribes to her Parkinson's disease. Takes her medications as prescribed. Requests full resuscitation in the event of cardiopulmonary demise. Designates her , Guillermo Francis, as her power of civil attorney for health should that be required. [facility] Medical History (Updated 03/17/23 @ 23:12 by Nader Lopez MD) Parkinson's disease (2019) ?G20 - Parkinson's disease (ICD-10) Vitamin D deficiency ?E55.9 - Vitamin D deficiency, unspecified (ICD-10) Gastroesophageal reflux disease ?K21.9 - Gastro-esophageal reflux disease without esophagitis (ICD-10) Dyslipidemia ?E78.5 - Hyperlipidemia, unspecified (ICD-10) Depression (~1998) ?F32.A - Depression, unspecified (ICD-10) Anxiety (04/2020) ?F41.9 - Anxiety disorder, unspecified (ICD-10) Anogenital lichen sclerosus ?L90.0 - Lichen sclerosus et atrophicus (ICD-10) Malrotation of small intestine (2010) ?Q43.3 - Congenital malformations of intestinal fixation (ICD-10) Adrenal adenoma ?D35.00 - Benign neoplasm of unspecified adrenal gland (ICD-10) Non-cardiac chest pain (05/20/09) ?R07.89 - Other chest pain (ICD-10) Irritable bowel syndrome (2010) ?K58.9 - Irritable bowel syndrome without diarrhea (ICD-10) Hypertension (2016) ?I10 - Essential (primary) hypertension (ICD-10) Headache (2016) ?R51.9 - Headache, unspecified (ICD-10) Collagenous colitis ?K52.831 - Collagenous colitis (ICD-10) Chronic disease anemia ?D63.8 - Anemia in other chronic diseases classified elsewhere (ICD-10) Surgical History Status post total replacement of hip (2016) ?Z96.649 - Presence of unspecified artificial hip joint (ICD-10) Status post excision of lipoma (09/2019) ?Z98.890 - Other specified postprocedural states (ICD-10) ?Z86.018 - Personal history of other benign neoplasm (ICD-10) History of hysterectomy (1977) ?Z90.710 - Acquired absence of both cervix and uterus (ICD-10) History of esophagogastroduodenoscopy (EGD) (2010) ?Z98.890 - Other specified postprocedural states (ICD-10) History of cholecystectomy (2004) ?Z90.49 - Acquired absence of other specified parts of digestive tract (ICD- 10) History of section (1971) ?Z98.891 - History of uterine scar from previous surgery (ICD-10) History of breast biopsy (1986) ?Z98.890 - Other specified postprocedural states (ICD-10) History of appendectomy (1951) ?Z90.49 - Acquired absence of other specified parts of digestive tract (ICD- 10) Family History Mother Stroke Sister Colon cancer, Onset Age: 38 Father Myocardial infarction, Onset Age: 69 Social History Narrative: Does not drink alcohol Does not have regular exercise regimen , retired from [employer], 4 adult kids Non-smoker Smoking Status: Never smoker Do you use any of these nicotine containing products: None Second hand tobacco smoke exposure: No How often do you have a drink containing alcohol: never AUDIT-C Alcohol total score: 0 Non-prescribed substance use: denies use Little interest or pleasure in doing things: several days Feeling down, depressed, or hopeless: several days Meds Home Medications and Allergies Home Medications Medication Instructions Recorded Confirmed Type carbidopa 25 mg-levodopa 100 mg 2 tab PO TID 05/26/22 03/15/23 History tablet clobetasol 0.05 % topical ointment 1 topical PRN PRN 05/26/22 09/29/22 History ketoconazole 2 % topical cream 1 applic topical DAILY 05/26/22 03/15/23 History carbidopa 25 mg-levodopa 250 mg 1 tab PO QID 03/15/23 03/15/23 History tablet Allergies Allergy/AdvReac Type Severity Reaction Status Date / Time lactose Allergy Intermediate Increased Verified 03/17/23 19:12 mucous accumulation penicillin V AdvReac Intermediate Rash Verified 03/17/23 19:12 Sulfa drugs Allergy Intermediate Headache Uncoded 03/17/23 19:12 Gluten Meal AdvReac Intermediate GI upset Uncoded 03/17/23 19:12 Exam Narrative: Exam Narrative: Appears comfortable and in no acute distress. Vision and hearing are grossly normal. Alert, oriented to self, place, time, and in part to situation. Does need to check with her in order to answer some her questions. Friendly, articulate, cooperative. Somewhat anxious. Mood and affect are congruent. Ecchymosis about right eye from fall 2 days ago. No open wounds. Tympanic membranes are normal. No icterus or conjunctival injection. Pupils equally round and reactive to light and accommodation. Extraocular muscles intact. Midline nasal septum. Moist buccal mucosa. Dentition in fair repair. Neck is supple. Midline trachea. No JVD or hepatojugular reflux. No carotid bruits. No head and neck lymphadenopathy. Lungs are clear to auscultation without wheezing, rhonchi, or rales. Chest wall excursions are full. No CVA tenderness or discomfort to palpation over the spine in the back. Heart tones with regular rhythm, normal S1-S2 no murmur, gallop, or rub. PMI is not laterally displaced. Abdomen with active bowel sounds, soft, nontender. No rebound or guarding. No organomegaly or masses. No focal motor neurologic deficits. No tremor, asterixis, or ataxia. Independent transfer, station, and gait. No obvious problems with word finding at this time. Const: Vital Signs, click to edit/add: Vital Signs - 24 hr 03/17/23 18:16 03/17/23 18:19 03/17/23 18:20 Temperature 98.8 F Pulse Rate 80 71 Pulse Rate [Pulse Oximeter] 95 Respiratory Rate 16 Blood Pressure 149/85 H Blood Pressure [Ri ght Upper Arm] 149/85 H Pulse Oximetry 95 99 100 Oxygen Delivery Me thod Room Air 03/17/23 18:50 03/17/23 18:51 03/17/23 18:55 Temperature Pulse Rate 81 83 73 Pulse Rate [Pulse Oximeter] Respiratory Rate Blood Pressure 176/79 H 170/80 H Blood Pressure [Ri ght Upper Arm] Pulse Oximetry 100 99 98 Oxygen Delivery Me thod 03/17/23 19:00 03/17/23 19:01 03/17/23 19:02 Temperature Pulse Rate 77 67 61 Pulse Rate [Pulse Oximeter] Respiratory Rate Blood Pressure 162/75 H Blood Pressure [Ri ght Upper Arm] Pulse Oximetry 100 97 92 Oxygen Delivery Me thod 03/17/23 19:15 03/17/23 19:16 03/17/23 19:17 Temperature Pulse Rate 75 78 67 Pulse Rate [Pulse Oximeter] Respiratory Rate Blood Pressure 169/86 H Blood Pressure [Ri ght Upper Arm] Pulse Oximetry 98 99 98 Oxygen Delivery Me thod 03/17/23 19:30 03/17/23 19:32 03/17/23 19:45 Temperature Pulse Rate 77 76 79 Pulse Rate [Pulse Oximeter] Respiratory Rate Blood Pressure 168/82 H Blood Pressure [Ri ght Upper Arm] Pulse Oximetry 91 94 98 Oxygen Delivery Me thod 03/17/23 19:46 03/17/23 20:00 03/17/23 20:01 Temperature Pulse Rate 73 69 79 Pulse Rate [Pulse Oximeter] Respiratory Rate Blood Pressure 172/85 H 178/82 H Blood Pressure [Ri ght Upper Arm] Pulse Oximetry 98 100 99 Oxygen Delivery Me thod 03/17/23 20:22 03/17/23 20:23 03/17/23 20:24 Temperature Pulse Rate 83 82 80 Pulse Rate [Pulse Oximeter] Respiratory Rate Blood Pressure 200/96 H Blood Pressure [Ri ght Upper Arm] Pulse Oximetry 97 98 99 Oxygen Delivery Me thod 03/17/23 20:30 03/17/23 20:32 03/17/23 20:45 Temperature Pulse Rate 77 75 79 Pulse Rate [Pulse Oximeter] Respiratory Rate Blood Pressure 178/96 H Blood Pressure [Ri ght Upper Arm] Pulse Oximetry 98 98 100 Oxygen Delivery Me thod 03/17/23 20:47 03/17/23 21:00 03/17/23 21:01 Temperature Pulse Rate 75 76 75 Pulse Rate [Pulse Oximeter] Respiratory Rate Blood Pressure 189/95 H 168/148 H Blood Pressure [Ri ght Upper Arm] Pulse Oximetry 94 100 99 Oxygen Delivery Me thod 03/17/23 21:02 03/17/23 21:15 03/17/23 21:16 Temperature Pulse Rate 78 64 64 Pulse Rate [Pulse Oximeter] Respiratory Rate Blood Pressure 175/84 H Blood Pressure [Ri ght Upper Arm] Pulse Oximetry 98 99 100 Oxygen Delivery Me thod 03/17/23 21:30 03/17/23 21:32 03/17/23 21:46 Temperature Pulse Rate 68 62 Pulse Rate [Pulse Oximeter] Respiratory Rate Blood Pressure 154/74 H 139/87 Blood Pressure [Ri ght Upper Arm] Pulse Oximetry 99 99 Oxygen Delivery Me thod 03/17/23 22:01 Temperature Pulse Rate Pulse Rate [Pulse Oximeter] Respiratory Rate Blood Pressure 137/106 H Blood Pressure [Ri ght Upper Arm] Pulse Oximetry Oxygen Delivery Me thod Documenting provider has reviewed patient's vital signs: yes Hospitalist - H&P: Result Labs Labs: Short CBC 03/17/23 Range/Units 18:30 WBC 5.32 (4.50-11.00) K/uL Hgb 11.9 L (12.0-16.0) gm/dL Hct 36.9 (33.0-51.0) % Plt Count 194 (140-440) K/uL BMP 03/17/23 18:30 Sodium 137 Potassium 4.0 Chloride 102 Carbon Dioxide 29 BUN 19 Creatinine 0.9 Glucose 97 Calcium 9.9 Cardiac Enzymes 03/17/23 Range/Units 18:30 Troponin I < 0.01 L (0.01-0.04) ng/mL Liver Function 03/17/23 Range/Units 18:30 Total Bilirubin 0.8 (0.1-1.5) mg/dL Direct Bilirubin 0.3 (0.0-0.5) mg/dL AST 35 (12-35) U/L ALT 9 (4-35) U/L Alkaline Phosphatase 85 (40-150) U/L Albumin 4.4 (3.3-5.0) g/dL Urine 03/17/23 Range/Units 20:20 Urine Color Yellow (Yellow) Urine Appearance Clear (Clear) Urine pH 8.5 (5.0-8.5) Ur Specific [place] 1.010 (1.000-1.030) Urine Protein Negative (Negative) Urine Glucose (UA) Negative (Negative) Assessment and Plan Assessment and plan (1) Expressive aphasia: Problem comment: Transient on 03/17/2023. CT scan of head negative. CT angiogram of head and neck is negative. Will check MR of the head on 03/18/2023. Status: Acute Assessment and Plan: Will add aspirin 81 mg daily. Continue on statin. Physical therapy and occupational therapy to assess. We do not have speech pathologist to see patient over the weekend. Consider outpatient assessment if warranted. (2) AMS (altered mental status): Problem comment: Transient, resolved per patient and family. Status: Acute (3) Hypertension: Problem comment: Blood pressures as high as 210/110 on 03/17/2023. They normalized with time. Continue to monitor in this setting. Status: Acute Assessment and Plan: Allow for permissive hypertension for now. (4) Parkinson's disease: Problem comment: Sees , [facility] Status: Acute Plan 1. Reviewed my impressions with patient, , and son. Answered their questions. Unclear if this is a TIA, small stroke, or related to evolving cognitive decline. 2. They are agreeable with above stated plans and recommendations. Telemetry while in hospital.
[2023-03-18 01:25] VITALS: BP 177/73; PULSE 69; RESP 18; TEMP 36.7; O2SAT 98
[2023-03-18] MEDS: ROSUVASTATIN CALCIUM 10 MG TABLET 5 MG PO (05:22)
--- NOTE | 2023-03-18 05:47 | PC.NURSE ---
Patient admitted to the unit at 2220. A&Ox3. Pleasant and cooperative. Speech is clear and appropriate. Patient acknowledges improvement in speech pattern since coming to the ED. A1/walker/GB. Patient notes weakness. Neuro assessment unremarkable. Denies pain. Denies SOB/CP. Denies dizziness/lightheadedness/N/V/headache. Bruising to L. side of forehead, L. cheek, and L. periorbital region d/t fall at home on Monday.
[2023-03-18 07:02] VITALS: PULSE 64
[2023-03-18 07:15] LABS: Hematocrit 35.2 % (33.0-51.0); Hemoglobin* 11.4 gm/dL (12.0-16.0); Mean Corpuscular HGB Conc 32 gm/dL (32-36); Mean Corpuscular Hemoglobin 31 pg (26-34); Mean Corpuscular Volume 96 fL (80-100); Platelet Count* 179 K/uL (140-440); Red Blood Count 3.66 m/uL (4.00-5.20); White Blood Count* 5.07 K/uL (4.50-11.00)
[2023-03-18 07:30] LABS: Slide Review Reflex No
[2023-03-18 07:33] LABS: Chloride* 106 mmol/L (96-114); Sodium* 137 mmol/L (135-149)
[2023-03-18 07:36] LABS: Blood Urea Nitrogen* 15 mg/dL (7-30); Carbon Dioxide* 26 mmol/L (20-32); Creatinine* 0.8 mg/dL (0.5-1.5); Est. Creatinine Clearance* 36.34; Estimated Glomerular Filt Rate 72 ml/min
[2023-03-18 07:37] LABS: Calcium* 9.7 mg/dL (8.4-10.6); Glucose* 80 mg/dL (60-115)
[2023-03-18 07:41] LABS: C Reactive Protein* < 0.5 mg/dL (0.5-1.0)
--- NOTE | 2023-03-18 08:00 | CRLHL7_ITS ---
For Patients: As a result of the Cures Act, medical imaging exams and procedure reports are released immediately into your electronic medical record. You may view this report before your referring provider. If you have questions, please contact your health care provider. Indication: Transient aphasia. Technique: Multiplanar, multisequence MRI of the brain was performed without intravenous contrast. Comparison: CT head, CTA head and neck 03/17/2023. Findings: Slight thinning of the corpus callosum. The pituitary gland and clivus appear intact. Mild degenerative change visualized upper cervical spine. There is no restricted diffusion. No intracranial hemorrhage. The ventricles are proportionate to the cerebral sulci. The 4th ventricle appears midline. The basal cisterns appear patent. No abnormal extra-axial fluid collection identified. There is no intracranial mass, abnormal mass-effect or midline shift identified. Mild parenchymal volume loss. Moderate to severe T2 FLAIR hyperintense foci within the subcortical and periventricular white matter, favored to represent chronic ischemic microvascular disease. Major intracranial vascular flow voids appear grossly intact. Thinning of the ocular lenses. Mild paranasal sinus mucosal disease. T2 FLAIR hyperintense lesion with reduced diffusion along the left frontoparietal calvarium with scalloping of the outer table. On the accompanying CT there is smooth scalloping, without aggressive periosteal reaction or osseous erosion which favors a nonaggressive lesion. This may represent a hemangioma. Impression: 1. No acute/subacute infarct. 2. Moderate to severe chronic ischemic microvascular disease. Dictated by True Johnson MD @ 03/18/2023 10:14:27 AM (Electronically Signed)
[2023-03-18 08:25] VITALS: BP 186/88; PULSE 74; RESP 18; TEMP 36.8; O2SAT 98
[2023-03-18] MEDS: ASPIRIN 81 MG TABLET EC PO (09:08)
[2023-03-18] MEDS: OMEPRAZOLE 20 MG CAPSULE DR PO (09:09)
[2023-03-18] MEDS: SODIUM CHLORIDE 0.9 % (FLUSH) 10 ML SYRINGE 5 ML IVF (09:13)
[2023-03-18] MEDS: VENLAFAXINE ER 75 MG CAPSULE 225 MG PO (09:16)
[2023-03-18 11:00] VITALS: BP 138/88; PULSE 66; RESP 16; TEMP 36.6; O2SAT 96
--- NOTE | 2023-03-18 13:35 | PM.DS1 ---
DS: Providers Provider Date Seen: 03/18/23 Date of admission: 03/17/23 22:16 Primary care physician: Marian Granados MD Admitting Clinician: Nader Lopez MD Attending Physician on discharge: Aron Garcia MD Date of Discharge: 03/18/23 DS: Diagnosis Discharge Diagnosis (1) AMS (altered mental status): Status: Acute Problem details: Transient, resolved per patient and family. Cause may be multifactorial, dementia, TIA, Parkinson's, concussion (2) Expressive aphasia: Status: Acute Problem details: Transient on 03/17/2023. CT scan of head negative. CT angiogram of head and neck is negative. MRI brain 03/18/2023 shows no acute stroke. Accompanied by altered mental status and resolved with return of normal mental status. Possibly due to multiple factors including TIA, dementia, Parkinson's, concussion (3) Dementia: Status: Acute Problem details: Dallas score of 13/30 03/18/2023. (4) Parkinson's disease: Status: Acute Problem details: Sees , [facility]. (5) Closed head injury without loss of consciousness: Status: Acute Problem details: Fell with head injury 2 days prior to admission. Did not have obvious concussion symptoms until the day of admission with altered mental status and expressive aphasia. Unclear if these events are linked. Imaging shows no evidence of intracranial trauma (6) Fall: Status: Acute Problem details: Therapy notes patient moves too quickly and is not consistently using assistive devices properly DS: Summary Hospital Course Hospital Course: 88-year-old female admitted to the hospital with an episode of expressive aphasia and altered mental status. This resolved relatively early into her hospital admission. Evaluation included emergent head CT and CT angiogram which were unremarkable. Brain MRI showed atrophy and chronic age related changes without evidence of stroke. She had no recurrent symptoms during hospital stay. Therapy evaluated her and noted that she was somewhat unsteady walking with a walker. Apparently does not reliably use a walker at home. There was a question of whether this could be related to a concussion from a fall that occurred 2 days prior to admission. Initially recommended that there be standby assistance for her when she was up with her walker. She also had a Dallas score of 13/30. There was a question of whether this was her best effort and recommendation was that there be outpatient follow-up and possibly repeating this in the future. Though this may not have been her best effort it is likely that she has dementia which is probably progressive. I discussed with patient and family the likelihood that she would need increased assistance. At this time we are recommending assistance with medications and closer supervision in the home. Will have PT and OT and home nursing go into her home to assess for safety and improve mobility Status at Discharge Functional status at discharge: uses cane/walker Overall status at discharge: patient is progressing back to baseline Time Spent with Patient Time attestation: Total time spent providing and/or coordinating discharge services: Time spent: Greater than 30 minutes Exam Narrative: Exam Narrative: She is alert and in no distress. She is oriented to being in the hospital. Speech is normal. No obvious word-finding difficulties. No slurring of her speech. Respirations are unlabored. She has bruising around her left eye and an abrasion on the lens of her glasses over the left eye. She has approximately equal strength bilaterally. Const: Vital Signs, click to edit/add: Vital Signs - 24 hr 03/17/23 18:16 03/17/23 18:19 03/17/23 18:20 Temperature 98.8 F Pulse Rate 80 71 Pulse Rate [Left A pical] Pulse Rate [Pulse Oximeter] 95 Respiratory Rate 16 Blood Pressure 149/85 H Blood Pressure [Ri ght Arm] Blood Pressure [Ri ght Upper Arm] 149/85 H Pulse Oximetry 95 99 100 Oxygen Delivery Me thod Room Air 03/17/23 18:50 03/17/23 18:51 03/17/23 18:55 Temperature Pulse Rate 81 83 73 Pulse Rate [Left A pical] Pulse Rate [Pulse Oximeter] Respiratory Rate Blood Pressure 176/79 H 170/80 H Blood Pressure [Ri ght Arm] Blood Pressure [Ri ght Upper Arm] Pulse Oximetry 100 99 98 Oxygen Delivery Me thod 03/17/23 19:00 03/17/23 19:01 03/17/23 19:02 Temperature Pulse Rate 77 67 61 Pulse Rate [Left A pical] Pulse Rate [Pulse Oximeter] Respiratory Rate Blood Pressure 162/75 H Blood Pressure [Ri ght Arm] Blood Pressure [Ri ght Upper Arm] Pulse Oximetry 100 97 92 Oxygen Delivery Me thod 03/17/23 19:15 03/17/23 19:16 03/17/23 19:17 Temperature Pulse Rate 75 78 67 Pulse Rate [Left A pical] Pulse Rate [Pulse Oximeter] Respiratory Rate Blood Pressure 169/86 H Blood Pressure [Ri ght Arm] Blood Pressure [Ri ght Upper Arm] Pulse Oximetry 98 99 98 Oxygen Delivery Me thod 03/17/23 19:30 03/17/23 19:32 03/17/23 19:45 Temperature Pulse Rate 77 76 79 Pulse Rate [Left A pical] Pulse Rate [Pulse Oximeter] Respiratory Rate Blood Pressure 168/82 H Blood Pressure [Ri ght Arm] Blood Pressure [Ri ght Upper Arm] Pulse Oximetry 91 94 98 Oxygen Delivery Me thod 03/17/23 19:46 03/17/23 20:00 03/17/23 20:01 Temperature Pulse Rate 73 69 79 Pulse Rate [Left A pical] Pulse Rate [Pulse Oximeter] Respiratory Rate Blood Pressure 172/85 H 178/82 H Blood Pressure [Ri ght Arm] Blood Pressure [Ri ght Upper Arm] Pulse Oximetry 98 100 99 Oxygen Delivery Or thod 03/17/23 20:22 03/17/23 20:23 03/17/23 20:24 Temperature Pulse Rate 83 82 80 Pulse Rate [Left A pical] Pulse Rate [Pulse Oximeter] Respiratory Rate Blood Pressure 200/96 H Blood Pressure [Ri ght Arm] Blood Pressure [Ri ght Upper Arm] Pulse Oximetry 97 98 99 Oxygen Delivery Or thod 03/17/23 20:30 03/17/23 20:32 03/17/23 20:45 Temperature Pulse Rate 77 75 79 Pulse Rate [Left A pical] Pulse Rate [Pulse Oximeter] Respiratory Rate Blood Pressure 178/96 H Blood Pressure [Ri ght Arm] Blood Pressure [Ri ght Upper Arm] Pulse Oximetry 98 98 100 Oxygen Delivery Me thod 03/17/23 20:47 03/17/23 21:00 03/17/23 21:01 Temperature Pulse Rate 75 76 75 Pulse Rate [Left A pical] Pulse Rate [Pulse Oximeter] Respiratory Rate Blood Pressure 189/95 H 168/148 H Blood Pressure [Ri ght Arm] Blood Pressure [Ri ght Upper Arm] Pulse Oximetry 94 100 99 Oxygen Delivery Me thod 03/17/23 21:02 03/17/23 21:15 03/17/23 21:16 Temperature Pulse Rate 78 64 64 Pulse Rate [Left A pical] Pulse Rate [Pulse Oximeter] Respiratory Rate Blood Pressure 175/84 H Blood Pressure [Ri ght Arm] Blood Pressure [Ri ght Upper Arm] Pulse Oximetry 98 99 100 Oxygen Delivery Me thod 03/17/23 21:30 03/17/23 21:32 03/17/23 21:46 Temperature Pulse Rate 68 62 Pulse Rate [Left A pical] Pulse Rate [Pulse Oximeter] Respiratory Rate Blood Pressure 154/74 H 139/87 Blood Pressure [Ri ght Arm] Blood Pressure [Ri ght Upper Arm] Pulse Oximetry 99 99 Oxygen Delivery Me thod 03/17/23 22:01 03/17/23 22:20 03/17/23 23:00 Temperature 98.0 F Pulse Rate 65 Pulse Rate [Left A pical] Pulse Rate [Pulse Oximeter] 78 Respiratory Rate 16 Blood Pressure 137/106 H Blood Pressure [Ri ght Arm] 154/81 H Blood Pressure [Ri ght Upper Arm] Pulse Oximetry 95 Oxygen Delivery Me thod Room Air 03/17/23 23:00 03/17/23 23:03 03/18/23 01:25 Temperature 98.0 F 98.0 F Pulse Rate Pulse Rate [Left A pical] Pulse Rate [Pulse Oximeter] 78 69 Respiratory Rate 16 16 18 Blood Pressure Blood Pressure [Ri ght Arm] 154/81 H 177/73 H Blood Pressure [Ri ght Upper Arm] Pulse Oximetry 98 95 98 Oxygen Delivery Me thod Room Air Room Air Room Air 03/18/23 08:25 03/18/23 08:25 03/18/23 11:00 Temperature 98.2 F 98 F Pulse Rate Pulse Rate [Left A pical] 74 66 Pulse Rate [Pulse Oximeter] 74 66 Respiratory Rate 18 18 16 Blood Pressure Blood Pressure [Ri ght Arm] 186/88 H 138/88 Blood Pressure [Ri ght Upper Arm] Pulse Oximetry 98 98 96 Oxygen Delivery Me thod Room Air Room Air Room Air Documenting provider has reviewed patient's vital signs: yes DS: Data Data Completed and Pending Labs on day of discharge: Labs from last 24 hours 03/18/23 03/17/23 03/17/23 06:39 20:20 18:30 WBC 5.07 5.32 RBC 3.66 L 3.83 L Hgb 11.4 L 11.9 L Hct 35.2 36.9 MCV 96 96 MCH 31 31 MCHC 32 32 RDW Coeff of Jackelyn 12.9 Plt Count 179 194 Neut % (Auto) 56.7 Lymph % (Auto) 30.5 [place] % (Auto) 8.8 Eos % (Auto) 3.4 Baso % (Auto) 0.6 Neut # (Auto) 3.02 Lymph # (Auto) 1.62 [place] # (Auto) 0.50 Eos # (Auto) 0.18 Baso # (Auto) 0.03 Sodium 137 137 Potassium 4.0 4.0 Chloride 106 102 Carbon Dioxide 26 29 BUN 15 19 Creatinine 0.8 0.9 Estimated Creat Clear 36.34 36.34 Estimated GFR 72 62 Glucose 80 97 Calcium 9.7 9.9 Magnesium 1.9 Total Bilirubin 0.8 Direct Bilirubin 0.3 AST 35 ALT 9 Alkaline Phosphatase 85 Troponin I < 0.01 L C-Reactive Protein < 0.5 L < 0.5 L NT-Pro-B Natriuret Pep 223 Total Protein 7.2 Albumin 4.4 TSH 7.530 H 2.880 Urine Color Yellow Urine Appearance Clear Urine pH 8.5 Ur Specific Leighton 1.010 Urine Protein Negative Urine Glucose (UA) Negative Urine Ketones Trace A Urine Blood Negative Urine Nitrite Negative Urine Bilirubin Negative Urine Urobilinogen 0.2 Ur Leukocyte Esterase Negative Urine RBC 0-2 Urine WBC 0-2 Ur Squamous Epith Cells None Urine Bacteria None Ethyl Alcohol < 0.[address] scan - head: Radiologist's impression: INDICATION: FALL. WEAKNESS. CT HEAD WITHOUT CONTRAST TECHNIQUE:? Multiple axial CT images were performed through the head without intravenous contrast administration. COMPARISON:? 03/15/[address] FINDINGS:? No acute intracranial hemorrhage is identified.? No extra-axial collections are evident and there is no mass effect or midline shift.? There is mild diffuse age-related brain atrophy.? Ventricular size and configuration are within normal limits for the patient`s age.? Emmanuel-white differentiation is within normal limits.? There is unchanged patchy hypodensity in the periventricular white matter, a nonspecific finding which most likely reflects chronic small vessel ischemic change. ? No fractures are seen.? Included portions of the paranasal sinuses and mastoid air cells are normally aerated. IMPRESSION:? 1. No acute intracranial abnormality identified. 2. Mild age-related brain atrophy and white matter hypodensity consistent with chronic small vessel ischemic change.? ? ILYA LITTLE MD MR Brain: Radiologist's impression: Technique: Multiplanar, multisequence MRI of the brain was performed without intravenous contrast. Comparison: CT head, CTA head and neck 03/17/2023. Findings: Slight thinning of the corpus callosum. The pituitary gland and clivus appear intact. Mild degenerative change visualized upper cervical spine. There is no restricted diffusion. No intracranial hemorrhage. The ventricles are proportionate to the cerebral sulci. The 4th ventricle appears midline. The basal cisterns appear patent. No abnormal extra-axial fluid collection identified. There is no intracranial mass, abnormal mass-effect or midline shift identified. Mild parenchymal volume loss. Moderate to severe T2 FLAIR hyperintense foci within the subcortical and periventricular white matter, favored to represent chronic ischemic microvascular disease. Major intracranial vascular flow voids appear grossly intact. Thinning of the ocular lenses. Mild paranasal sinus mucosal disease. T2 FLAIR hyperintense lesion with reduced diffusion along the left frontoparietal calvarium with scalloping of the outer table. On the accompanying CT there is smooth scalloping, without aggressive periosteal reaction or osseous erosion which favors a nonaggressive lesion. This may represent a hemangioma. Impression: 1. No acute/subacute infarct. 2. Moderate to severe chronic ischemic microvascular disease. Discharge Plan Discharge Disposition: Home, Self-Care Date of Admission: 03/17/23 22:16 Attending Provider on Discharge: Jay Garcia Primary Care Provider: Marian Granados Condition: Improved Anticipated Discharge Date/Time: 03/18/23 13:00 Discharge Medications: New aspirin 81 mg Tablet,Delayed Release (Dr/Ec) 81 mg PO DAILY Qty: 100 0RF Continued clobetasol 0.05 % ointment 1 applic topical PRN PRN Rx Instructions: APPLY SPARINGLY TO AFFECTED AREA ketoconazole 2 % cream 1 applic topical DAILY PRN omeprazole 20 mg capsule,delayed release(DR/EC) 20 mg PO DAILY Qty: 90 4RF cholecalciferol (vitamin D3) 25 mcg (1,000 unit) tablet 1,000 unit PO DAILY Qty: 90 4RF carbidopa-levodopa 25-250 mg tablet 1 tab PO QID@08,12,16,20 venlafaxine 75 mg capsule,extended release 24hr 75 mg PO DAILY Patient Comments: TOTAL DOSE = 225MG venlafaxine 150 mg capsule,extended release 24hr 150 mg PO DAILY Patient Comments: TOTAL DOSE = 225MG rosuvastatin 5 mg tablet 5 mg PO HS Discharge Orders: Discharge Order (Routine); Ordered 03/18/23 Ordered By: Jay Garcia Patient Education: Aspirin (By mouth), Transient Ischemic Attack (DC) Additional Instructions: We recommend family to set up medications in a pillbox and supervise medication administration. Activity Level: No Restrictions and Use Walker Discharge Diet: Regular Follow Up Appointments: Marian Granados MD [Primary Care Provider] - 03/23/23 9:30 am ([facility]) Forms: [employer] Info Instructions
--- NOTE | 2023-03-18 14:18 | PC.NURSE ---
Pt's tele indicates NSR. She was taken to MRI via w/c this am. Slept after testing and am meds provided. Eval by Dr. Garcia who reviewed test results with patient/spouse and son John. Eval by Malu DARNELL for mini MOCA. IV discontinued. Pt, spouse and son verbalized understanding of d/c diagnosis, home meds, new RX, f/up appt and sx to report urgently to physician. Discharged via w/c to own home w/personal belongings w/spouse Andrey and son John @ 1410 pm.
--- NOTE | 2023-03-22 10:22 | PC.SOCIAL ---
Pt. needs home care. Called [facility], [facility], [facility], [facility], [facility] and [facility]. None have the staffing to serve [facility]. [facility] can accommodate the week of April 03. Orders have been sent and pt's spouse was updated that [facility] would start the week of April 03.
== END 2023-03-18 14:10 | disposition home or self-care (01) ==
LOC: ED 21:36 → MEDSURG 22:17
PROVIDERS: Admitting Provider Internal Medicine; Emergency Provider Family Medicine; PCP Family Medicine; Visit Provider Internal Medicine
DX: R41.82 Altered mental status, unspecified (principal); R47.01 Aphasia; F03.90 Unspecified dementia, unspecified severity, without behavioral disturbance, psychotic disturbance, mood disturbance, and anxiety; G20 Parkinson's disease; I10 Essential (primary) hypertension; K21.9 Gastro-esophageal reflux disease without esophagitis; E78.5 Hyperlipidemia, unspecified; W19.XXXA Unspecified fall, initial encounter; S09.90XA Unspecified injury of head, initial encounter; S00.12XA Contusion of left eyelid and periocular area, initial encounter; S50.11XA Contusion of right forearm, initial encounter; Z96.649 Presence of unspecified artificial hip joint; Z98.891 History of uterine scar from previous surgery; Z86.018 Personal history of other benign neoplasm; Z90.49 Acquired absence of other specified parts of digestive tract; Z90.710 Acquired absence of both cervix and uterus; Z98.890 Other specified postprocedural states
CPT/HCPCS: 36415; 70450; 70496; 70498; 70551; 72125; 80048; 80076; 81001; 82077; 83735; 83880; 84443; 84484; 85025; 85027; 86140; 93005; 94761; 96360; 96361; 97110; 97116; 97162; 97166; 97535; 99284; 99285; 99291; G0378; A9270; J7030; Q9967

== ENCOUNTER 2023-04-19 11:07 | Outpatient (CLI) | payer MEDICARE, OTHER, SELFPAY | END 2023-04-19 11:08 | disposition home or self-care (01) | LOC: NFLDREF 04-20 08:01 | PROVIDERS: PCP Family Medicine; Referring Provider Family Medicine; Visit Provider Family Medicine | DX: E03.9 Hypothyroidism, unspecified (principal); R79.89 Other specified abnormal findings of blood chemistry | CPT/HCPCS: 84443 ==

== ENCOUNTER 2023-06-13 13:00 | Outpatient (RCR) | payer MEDICARE, OTHER, SELFPAY ==
--- NOTE | 2023-05-24 17:42 | PT.OPEX ---
PT [place] Outpatient Eval PT [facility] Outpatient Eval Start: 05/23/23 14:31 Freq: Status: Active Protocol: Document 05/23/23 14:32 HECTOR (Rec: 05/24/23 11:25 HECTOR [id number]) E-signed By Estefani Flores PT Physical Therapy Outpatient Evaluation Insurance Information Recert Due Date 08/20/23 Insurance Name [employer],Medicare B Insurance Information/Comments MEDICARE/[employer] Medical Diagnosis ABNORMALITIES OF GAIT AND MOBILITY R26.89 Treating Diagnosis WEAKNESS M62.81 UNSTEADINESS R26.81 Referring MD WHYTE Subjective Subjective I'M STILL WORKING ON GETTING BACK TO MY USUAL SELF BUT MY BALANCE IS OFF. 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 WHYTE REFERRED TO PHYSICAL THERAPY D /T DIFFICULTY AMB AND UNSTEADINESS ON FEET. PMHX INCLUDES BUT NOT LIMITED TO H/ O TIA, H/O CLOSED HEAD INJURY STRIKING LEFT SIDE (03/17/23) W/ AMS, ANXIETY AND DEPRESSION, PARKINSON'S DZ, DEMENTIA, DYSLIPIDEMIA, ADRENAL ADENOMA, IBS, HTN, RIGHT JEANIE (2017), [place]. SHE LIVES WITH HER SPOUSE IN A MULTILEVEL FARMHOUSE WITH 2 STEPS TO ENTER AND RAILING ON LEFT AND ALL HER NEEDS MET ON THE FIRST FLOOR. SHE IS HERE WITH A SPC BUT REPORTS USING A ROLLATOR IN THE HOME ON OCCASIONALLY. SHE RECENTLY FEEL STRIKING HER HEAD AND REPORTS NOT FEELING BACK TO HER USUAL SELF. SHE HAS A DEMENTIA DX BUT IS ORIENTED X 3 WITH CONFUSION NOTED WITH MAKING APPTS AND COORDINATING DAILY SCHEDULES. SHE DEMONSTRATES A MODERATE RISK FOR FALLS EVIDENCED BY A SCORE 46/56 ON THE MAGANA BALLANCE EXAM ASSESSING BOTH FUNCTIONAL STATIC AND DYNAMIC BALANCE. SHE HAS FAIR STRENGTH BLE SCORING 4/5 AND NORMAL ROM. SHE IS UNABLE TO SLS ON EITHER HER RIGHT OR LEFT AND DEMONSTRATES UNSTEADINESS UPON INITIAL STAND NOTING A BACKWARD FALL INTO THE SURFACE SHE IS COMING FROM 3 OUT 10 TRIALS. SHE REPORTS NOT RETURNING TO DRIVING AND GROCERY SHOPPING WITH HER SPOUSE RELYING ON THE SHOPPING CART FOR NOT ONLY BALANCE BUT ALSO ENDURANCE. SHE ADMITS BECOMING CONFUSED AT TIMES DURING THE SHOPPING TRIP WELL UNSTEADY WITH THE STIMULUS OF PEOPLE, NARROW AISLES, AND ATTEMPTING TO REACH FOR ITEMS WHEN NOT ASSISTED BY THE CART FOR STABILITY. HER PATIENT CENTERED GOAL IS TO BE ABLE TO WALK W/O THE CANE AND RETURN TO DRIVING. SHE IS APPROPRIATE FOR SKILLED PHYSICAL THERAPY TO ADDRESS FUNCTIONAL STRENGTH , BALANCE AND GT FOR COMMUNITY AMB. Primary Functional Limitations BALANCE GT STEPS ENDURANCE MEMORY Plan of Care Rehabilitation Potential Good Rehabilitation Potential Comments WITH HER DEMENTIA DX, PATIENT WILL NEED SLOW PROGRESS AND REPETITION Physical Therapy Goals IN 6-8 VISITS: 1. PATIENT WILL IMPROVE HER MAGANA FROM 46-51/56 TO IMPROVE HER RISK FOR FALLS 2. PATIENT WILL IMPROVE HER FUNCTIONAL STRENGTH EVIDENCED BY INCREASE FROM 5 STS IN 30 SEC TO 9 (AGE NORM) 3. PATIENT WILL AMB 1/2 MILE W /O AD SAFELY AND CONSISTENTLY ON A VARIETY OF SURFACES INDEPENDENTLY 4. PATIENT WILL BE INDEPENDENT WITH HEP AND DEMONSTRATE THE ABILITY TO PROGRESS Coordination/Communication With Referral Source,Patient Caregiver Treatment Plan/Direct Interventions Gait Training,Neuromuscular Re -ed,Therapeutic Activities, Therapeutic Exercises Frequency/Duration 1W8 Patient Will Be Discharged From Therapy Completion of LTG(s), Independent w/HEP Discharge Plan Comments DISCHARGE PATIENT WILL GOALS MET OR MAX POTENTIAL ACHIEVED. Evaluation Billing Untimed Code Treatment Minutes 20 PT Eval No Charge No Complexity High Certification Information Provider Signature Shows Agreement With POC & Medical Necessity Physician Signature & Date Requested Please Sign/Date Here Physician Comment/Change : Physician NPI Number #
== END 2023-08-09 13:12 | disposition home or self-care (01) ==
PROVIDERS: PCP Family Medicine; Visit Provider Family Medicine
DX: R26.89 Other abnormalities of gait and mobility (principal); M62.81 Muscle weakness (generalized); R26.81 Unsteadiness on feet; Z51.89 Encounter for other specified aftercare
CPT/HCPCS: 36415; 71046; 80053; 83690; 84484; 85025; 85379; 93005; 94761; 97112; 97163; 97530; 99283; 99284; A9270

== ENCOUNTER 2023-06-13 13:58 | Emergency (ER) | payer MEDICARE, OTHER, SELFPAY ==
[2023-06-13] VITALS (40 sets, daily range): BP systolic 142–167; BP diastolic 71–88; PULSE 53–71; RESP 16; TEMP 36.3; O2SAT 85–100; BMI 23.3
--- NOTE | 2023-06-13 14:21 | ED_ITS ---
HPI - Chest Pain General Chief Complaint: Chest Pain Stated Complaint: Chest pain Time Seen by Provider: 06/13/23 14:09 History of Present Illness HPI narrative: This is a pleasant 88-year-old female with a past medical history including Parkinson's disease (possible dementia, see below), GERD, hypertension, anxiety, balance problems, previous cholecystectomy, surgery for intestinal malrotation, collagenous colitis, chronic anemia. Per patient her they came to the ER today for an episode of chest pain. She has been doing weekly physical therapy for the past couple of months to help improve her balance with the setting of early Parkinson's disease. She had an episode of chest pain that started just prior to arrival, after she had finished her physical therapy he was located in the lower substernal region and did not radiate. It felt like a tight stabbing pain. It was not really squeezing. It did not go through to her back. Did not radiate down her arm or through to the sides of her chest. No other symptoms. No palpitations. No dizziness. No nausea. No back pain. No abdominal pain. She does recall that she has had a similar episode of pain about 2 or 3 months ago and was seen here in the ER. She says that she had blood tests and they were normal. She apparently had an outpatient follow-up with a clerical methods analyst through [facility], in their [employer] office, and is scheduled to have a ?complete heart workup? that will be done sometime in the end of June or early July. She does not have any other history of stents or cardiovascular disease. She has not had any recent stress test. She has not had any other chest pains in the past couple of weeks or at least not for a month or 2. She does have a history of GERD. She was recently taken off omeprazole, but is unclear why this was discontinued. Reviewed the patient's recent medical records. I do not see any recent visits for chest pain 1 in our system. 03/18/23 admitted for an episode of confusion / speech difficulty. CT and CT angiogram which were unremarkable. Brain MRI showed atrophy and chronic age related changes without evidence of stroke. She had no recurrent symptoms during hospital stay. She also had a [place] score of 13/30. There was question about whether not the score was related to concussion and head injury, or not patient's best effort. Therapy evaluated her and noted that she was somewhat unsteady walking with a walker. Recommended that there be standby assistance for her when she was up with her walker. She had a follow-up visit in clinic on 04/20. I contacted [facility]. I contacted several operators. I contacted the provider who works with the cardiology clinic schedulers for [place]. The patient did have a visit on May 03 with Cardiology, Dr. Leone. This is apparently a hospital follow-up. She had been seen at some point prior to that in the ER and [place] for chest pain. She is scheduled for cardiology workup on July 19 and July 26 Related Data Home Medications Medication Instructions Recorded Confirmed ketoconazole 2 % topical cream 1 applic topical DAILY PRN 05/26/22 06/13/23 carbidopa 25 mg-levodopa 250 mg 1 tab PO QID@08,12,16,20 03/15/23 06/13/23 tablet rosuvastatin 5 mg tablet 5 mg PO HS 03/18/23 06/13/23 venlafaxine 150 mg 150 mg PO DAILY 03/18/23 06/13/23 capsule,extended release 24 hr venlafaxine 75 mg capsule,extended 75 mg PO DAILY 03/18/23 06/13/23 release 24 hr Previous Rx's Medication Instructions Recorded cholecalciferol (vitamin D3) 25 1,000 unit PO DAILY #90 tabs 05/26/22 mcg (1,000 unit) tablet omeprazole 20 mg capsule,delayed 20 mg PO DAILY #90 caps 05/26/22 release aspirin 81 mg tablet,delayed 81 mg PO DAILY #100 tabs 03/18/23 release Allergies Allergy/AdvReac Type Severity Reaction Status Date / Time lactose Allergy Intermediate Increased Verified 06/13/23 14:05 mucous accumulation penicillin V AdvReac Intermediate Rash Verified 06/13/23 14:05 Sulfa drugs Allergy Intermediate Headache Uncoded 03/23/23 09:29 Gluten Meal AdvReac Intermediate GI upset Uncoded 03/23/23 09:29 [facility] Medical History (Updated 05/02/23 @ 16:55 by Betzaida Schaefer, RONALDO, [employer]) Closed head injury without loss of consciousness ?S09.90XA - Unspecified injury of head, initial encounter (ICD-10) Expressive aphasia (03/17/23) ?R47.01 - Aphasia (ICD-10) Fall ?W19.XXXA - Unspecified fall, initial encounter (ICD-10) Hospital discharge follow-up ?Z09 - Encounter for follow-up examination after completed treatment for conditions other than malignant neoplasm (ICD-10) AMS (altered mental status) (03/17/23) ?R41.82 - Altered mental status, unspecified (ICD-10) Gastroesophageal reflux disease ?K21.9 - Gastro-esophageal reflux disease without esophagitis (ICD-10) Depression (~1998) ?F32.A - Depression, unspecified (ICD-10) Anxiety (04/2020) ?F41.9 - Anxiety disorder, unspecified (ICD-10) Dementia ?F03.90 - Unspecified dementia, unspecified severity, without behavioral disturbance, psychotic disturbance, mood disturbance, and anxiety (ICD-10) Parkinson's disease (2019) ?G20 - Parkinson's disease (ICD-10) Vitamin D deficiency ?E55.9 - Vitamin D deficiency, unspecified (ICD-10) Dyslipidemia ?E78.5 - Hyperlipidemia, unspecified (ICD-10) Anogenital lichen sclerosus ?L90.0 - Lichen sclerosus et atrophicus (ICD-10) Malrotation of small intestine (2010) ?Q43.3 - Congenital malformations of intestinal fixation (ICD-10) Adrenal adenoma ?D35.00 - Benign neoplasm of unspecified adrenal gland (ICD-10) Non-cardiac chest pain (05/20/09) ?R07.89 - Other chest pain (ICD-10) Irritable bowel syndrome (2010) ?K58.9 - Irritable bowel syndrome without diarrhea (ICD-10) Hypertension (2016) ?I10 - Essential (primary) hypertension (ICD-10) Headache (2017) ?R51.9 - Headache, unspecified (ICD-10) Collagenous colitis ?K52.831 - Collagenous colitis (ICD-10) Chronic disease anemia ?D63.8 - Anemia in other chronic diseases classified elsewhere (ICD-10) Surgical History Status post total replacement of hip (2016) ?Z96.649 - Presence of unspecified artificial hip joint (ICD-10) Status post excision of lipoma (09/2019) ?Z98.890 - Other specified postprocedural states (ICD-10) ?Z86.018 - Personal history of other benign neoplasm (ICD-10) History of hysterectomy (1977) ?Z90.710 - Acquired absence of both cervix and uterus (ICD-10) History of esophagogastroduodenoscopy (EGD) (2010) ?Z98.890 - Other specified postprocedural states (ICD-10) History of cholecystectomy (2004) ?Z90.49 - Acquired absence of other specified parts of digestive tract (ICD- 10) History of section (1971) ?Z98.891 - History of uterine scar from previous surgery (ICD-10) History of breast biopsy (1986) ?Z98.890 - Other specified postprocedural states (ICD-10) History of appendectomy (1951) ?Z90.49 - Acquired absence of other specified parts of digestive tract (ICD- 10) Family History Mother Stroke Sister Colon cancer, Onset Age: 38 Father Myocardial infarction, Onset Age: 69 Social History Narrative: Does not drink alcohol Does not have regular exercise regimen , retired from [employer], 4 adult kids Non-smoker What is your current living situation?: I presently have a place to live Problems where you live: no known problems Problems where you live details: n/a In the past 12 months, utilities in danger of being shut off: no In past 12 months, lack of transportation kept you from medical appts, meetings, work, or getting things needed for daily living: no In the past 12 mos, have been you worried that your food would run out before you had money to buy more?: never true In the past 12 mos, the food you bought just didn't last and you didn't have money to buy more?: never true Highest level of school completed/degree received: high school graduate Smoking Status: Never smoker Do you use any of these nicotine containing products: None Second hand tobacco smoke exposure: No How often do you have a drink containing alcohol: never How often do you have six or more drinks on one occasion: Never AUDIT-C Alcohol total score: 0 Non-prescribed substance use: denies use Caffeine: Yes How often does anyone, including family, friends and others, physically hurt you : never How often does anyone, including family, friends and others, insult or talk down to you: never How often does anyone, including family, friends and others, threaten you with harm: never How often does anyone, including family, friends and others, scream or curse at you: never Little interest or pleasure in doing things: several days Feeling down, depressed, or hopeless: several days service: No Exam Narrative Exam Narrative: Constitutional: Appears well-developed and well-nourished. Alert. Conversant. Non toxic. HENT: Head: Atraumatic. Nose: Nose normal. Mouth/Throat: Oral mucosa is clear and moist. no trismus. Pharynx normal. Tonsils symmetric. No tonsillar enlargement, erythema, or exudate. Eyes: Conjunctivae normal. EOM normal. Pupils equal, round, and reactive to light. No scleral icterus. Neck: Normal range of motion. Neck supple. No tracheal deviation present. No JVD Cardiovascular: Normal rate, regular rhythm. No gallop. No friction rub. No murmur heard. Symmetric radial and PT artery pulses Pulmonary/Chest: Effort normal. No stridor. No respiratory distress. No wheezes. No rales. No rhonchi . No tenderness. Abdominal: Soft. Bowel sounds normal. No distension. No mass. Very mild epigastric tenderness. No rebound. No guarding. Musculoskeletal: RUE: Normal range of motion. No tenderness. No deformity LUE: Normal range of motion. No tenderness. No deformity RLE: Normal range of motion. No edema. No tenderness. No deformity LLE: Normal range of motion. No edema. No tenderness. No deformity Lymph: No cervical adenopathy. Neurological: Alert and oriented to person, place, and time, but she has a 10 gentle historian. She has difficulty remembering when her previous episodes of chest pain occurred. helps assist with her history. Normal strength. CN II-VII intact. No sensory deficit. GCS eye subscore is 4. GCS verbal subscore is 5. GCS motor subscore is 6. Normal coordination Skin: Skin is warm and dry. No rash noted. No pallor. Normal capillary refill. Psychiatric: Normal mood. Normal affect. Const Vital Signs, click to edit/add: Vital Signs - 24 hr 06/13/23 14:07 06/13/23 14:10 06/13/23 14:11 Temperature 97.3 F L Pulse Rate 71 66 Pulse Rate [Pulse Oximeter] 62 Respiratory Rate 16 Blood Pressure 142/88 H Blood Pressure [Right Upper Arm] 142/88 H Pulse Oximetry 100 99 93 Oxygen Delivery Method Room Air 06/13/23 14:15 06/13/23 14:30 06/13/23 14:45 Temperature Pulse Rate 59 L 62 71 Pulse Rate [Pulse Oximeter] Respiratory Rate Blood Pressure Blood Pressure [Right Upper Arm] Pulse Oximetry 100 100 97 Oxygen Delivery Method 06/13/23 14:59 06/13/23 15:00 06/13/23 15:02 Temperature Pulse Rate 58 L 59 L 66 Pulse Rate [Pulse Oximeter] Respiratory Rate 16 16 Blood Pressure 143/78 H 159/73 H Blood Pressure [Right Upper Arm] Pulse Oximetry 100 99 100 Oxygen Delivery Method 06/13/23 15:03 06/13/23 15:05 06/13/23 15:20 Temperature Pulse Rate 64 Pulse Rate [Pulse Oximeter] Respiratory Rate Blood Pressure Blood Pressure [Right Upper Arm] Pulse Oximetry 99 99 96 Oxygen Delivery Method 06/13/23 15:23 06/13/23 15:30 06/13/23 15:32 Temperature Pulse Rate 69 65 70 Pulse Rate [Pulse Oximeter] Respiratory Rate Blood Pressure 158/73 H 167/88 H Blood Pressure [Right Upper Arm] Pulse Oximetry 97 99 100 Oxygen Delivery Method 06/13/23 15:33 06/13/23 15:45 06/13/23 15:47 Temperature Pulse Rate 71 68 68 Pulse Rate [Pulse Oximeter] Respiratory Rate Blood Pressure 158/78 H Blood Pressure [Right Upper Arm] Pulse Oximetry 99 99 100 Oxygen Delivery Method 06/13/23 15:48 06/13/23 16:00 Temperature Pulse Rate 69 63 Pulse Rate [Pulse Oximeter] Respiratory Rate Blood Pressure Blood Pressure [Right Upper Arm] Pulse Oximetry 99 100 Oxygen Delivery Method Course Vital Signs Vital signs: Initial Vital Signs Temperature 97.3 F L 06/13/23 14:07 Temperature Source Temporal Artery Scan 06/13/23 14:07 Pulse Rate 62 06/13/23 14:07 Pulse Rhythm Regular 06/13/23 14:07 Pulse Strength 3+ Normal 06/13/23 14:07 Respiratory Rate 16 06/13/23 14:07 Blood Pressure 142/88 H 06/13/23 14:07 Blood Pressure Mean 106 H 06/13/23 14:07 Blood Pressure Position Sitting 06/13/23 14:07 Pulse Oximetry 100 06/13/23 14:07 Oxygen Delivery Method Room Air 06/13/23 14:07 Vital Signs Temperature 97.3 F L 06/13/23 14:07 Pulse Rate 62 06/13/23 14:07 Respiratory Rate 16 06/13/23 14:07 Blood Pressure 142/88 H 06/13/23 14:07 Pulse Oximetry 100 06/13/23 14:07 Oxygen Delivery Method Room Air 06/13/23 14:07 Temperature 97.3 F L 06/13/23 14:07 Pulse Rate 63 06/13/23 16:00 Respiratory Rate 16 06/13/23 15:02 Blood Pressure 158/78 H 06/13/23 15:47 Pulse Oximetry 100 06/13/23 16:00 Oxygen Delivery Method Room Air 06/13/23 14:07 MDM - Chest Pain MDM Narrative Medical decision making narrative: This patient presents to the ER today for evaluation of a 10 minute episode of sharp substernal chest pain. Differential was broad. She has not had any exertional component, in fact this pain happened while she was resting after she completed her physical therapy today. Clinical presentation would not be ?classic? for angina but we still considered possible ACS under differential because of age and gender. No evidence of palpitations, syncope or other cardiac dysrhythmia. We considered possible ACS, however workup with EKG and troponin is negative. Given time since onset of symptoms, we will obtain serial enzymes here in the ER. She had had a similar episode of chest pain last months, sometime in early April and had been evaluated in another ER ([place], [facility]. Records requested but still not available at the time of this dictation). She has also had an outpatient cardiology visit and is scheduled for stress testing in about 6 weeks, on July 26. HEART score is 4. However she would prefer to discharge home. She has already had an outpatient cardiology visit for chest pain, as above. She will try to follow up with her clerical methods analyst to expedite her stress testing. Chest x-ray shows no evidence for pneumonia, pneumothorax, pulmonary edema, pleural effusion, rib fracture, cardiomegal, per my read. Formal radiology report pending at the time of this dictation. Mediastinum is normal on the x-ray. The patient has no ripping or tearing pain through to the back and has symmetric pulses on exam, no other acute neuro findings so I doubt aortic dissection. Risk of radiation and contrast exposure would outweigh the benefit of CT angiogram. We considered PE for this patient. D-dimer is 0.52. Age adjusted this is normal. Risk of contrast nephropathy from CT PA would outweigh the benefit at this point. Will hold off on further workup. No wheezing or bronchospasm to suggest COPD/asthma. No signs of chest wall cellulitis, shingles, injury. Differential would also include esophagitis or esophageal spasm. She has a history of GERD and was recently taken off her PPI. With reasonable clinical confidence, I think the patient is safe for outpatient follow up. Discussed return precautions. Questions answered. Patient voices comfort with the plan. Discussed my partner, Dr. Hunter. She will follow up on the patient's repeat troponin-to be drawn at 6:00 p.m.. And her outstanding labs. She will follow up on the patient's formal chest x-ray report to make sure there is no missing pathology there. If that workup is negative, patient will be discharged from the ER with plans for outpatient cardiology follow-up. Lab Data Labs: Lab Results 06/13/23 06/13/23 Range/Units 14:55 15:00 WBC 6.43 (4.50-11.00) K/uL RBC 3.64 L (4.00-5.20) m/uL Hgb 11.5 L (12.0-16.0) gm/dL Hct 35.0 (33.0-51.0) % MCV 96 (80-100) fL MCH 32 (26-34) pg MCHC 33 (32-36) gm/dL RDW Coeff of Jackelyn 12.5 (11.5-15.5) % Plt Count 193 (140-440) K/uL Neut % (Auto) 66.6 (42.0-72.0) % Lymph % (Auto) 21.6 (20-44) % [place] % (Auto) 8.6 (0.0-11.0) % Eos % (Auto) 2.5 (0.0-7.0) % Baso % (Auto) 0.5 (0.0-3.0) % Neut # (Auto) 4.29 (1.7-7.0) K/uL Lymph # (Auto) 1.39 (0.90-2.90) K/uL [place] # (Auto) 0.60 (0.00-0.90) K/UL Eos # (Auto) 0.16 (0.00-0.50) K/uL Baso # (Auto) 0.03 (0.00-0.30) K/uL Abs Immat Gran (auto) 0.01 (0.00-0.30) K/uL Imm/Tot Granulo (auto) 0.2 % D-Dimer Quant (PE/DVT) 0.52 H (0.00-0.50) ug/ml Sodium 133 L (135-149) mmol/L Potassium 4.4 (3.6-5.1) mmol/L Chloride 103 (96-114) mmol/L Albumin 4.1 (3.3-5.0) g/dL POC Troponin I 0.00 L (0.01-0.04) ng/ml ECG Data Attestation: I personally reviewed and interpreted this ECG as follows: Interpretation: Normal sinus rhythm . rate 73 DE 160 QRS axis Normal axis. no Q waves ST segment/T wave: No ST elevation or depression QTc: 442 Discharge Plan Discharge Prescriptions: No Action ketoconazole 2 % cream 1 applic topical DAILY PRN omeprazole 20 mg capsule,delayed release(DR/EC) 20 mg PO DAILY Qty: 90 4RF Hold Instructions: trial off of med for 1 week cholecalciferol (vitamin D3) 25 mcg (1,000 unit) tablet 1,000 unit PO DAILY Qty: 90 4RF carbidopa-levodopa 25-250 mg tablet 1 tab PO QID@08,12,16,20 venlafaxine 75 mg capsule,extended release 24hr 75 mg PO DAILY Patient Comments: TOTAL DOSE = 225MG venlafaxine 150 mg capsule,extended release 24hr 150 mg PO DAILY Patient Comments: TOTAL DOSE = 225MG rosuvastatin 5 mg tablet 5 mg PO HS aspirin 81 mg Tablet,Delayed Release (Dr/Ec) 81 mg PO DAILY Qty: 100 0RF Follow Up/Referrals: Marian Granados MD [Primary Care Provider] -
--- NOTE | 2023-06-13 14:52 | CRLHL7_ITS ---
For Patients: As a result of the Century Cures Act, medical imaging exams and procedure reports are released immediately into your electronic medical record. You may view this report before your referring provider. If you have questions, please contact your health care provider. Indication: Chest pain Comparison: None available. Technique: PA and lateral views of the chest Findings: There is mild chronic interstitial change without dense consolidation, effusion or pneumothorax. The cardiomediastinal silhouette is within normal limits. The bony thorax is grossly intact. Impression: No acute cardiopulmonary abnormality. Dictated by Jorge A Clark MD @ 06/13/2023 4:25:12 PM (Electronically Signed)
[2023-06-13 15:16] LABS: Basophils Absolute Auto 0.03 K/uL (0.00-0.30); Basophils Percent Auto 0.5 % (0.0-3.0); Eosinophils Absolute Auto 0.16 K/uL (0.00-0.50); Eosinophils Percent Auto 2.5 % (0.0-7.0); Hemoglobin* 11.5 gm/dL (12.0-16.0); Immature Granulocytes Abs Auto 0.01 K/uL (0.00-0.30); Immature Granulocytes Pct Auto 0.2 %; Lymphocytes Absolute Auto 1.39 K/uL (0.90-2.90); Lymphocytes Percent Auto 21.6 % (20-44); Mean Corpuscular HGB Conc 33 gm/dL (32-36); Mean Corpuscular Hemoglobin 32 pg (26-34); Mean Corpuscular Volume 96 fL (80-100); Monocytes Percent Auto 8.6 % (0.0-11.0); Neutrophils Absolute Auto 4.29 K/uL (1.7-7.0); Neutrophils Percent Auto 66.6 % (42.0-72.0); Platelet Count* 193 K/uL (140-440); RDW Coefficient of Variation % 12.5 % (11.5-15.5); Red Blood Count 3.64 m/uL (4.00-5.20); White Blood Count* 6.43 K/uL (4.50-11.00)
[2023-06-13 15:17] LABS: Slide Review Reflex No
[2023-06-13] MEDS: ASPIRIN 81 MG TAB.CHEW 162 MG PO (15:23)
[2023-06-13 15:54] LABS: D Dimer Quantitative* 0.52 ug/ml (0.00-0.50)
[2023-06-13 16:11] LABS: Albumin* 4.1 g/dL (3.3-5.0)
[2023-06-13 16:12] LABS: Chloride* 103 mmol/L (96-114); Potassium* 4.4 mmol/L (3.6-5.1); Sodium* 133 mmol/L (135-149)
[2023-06-13 16:14] LABS: Anion Gap 6 mEq/L (7-15); Aspartate Amino Transferase* 35 U/L (12-35); Bilirubin Total* 0.6 mg/dL (0.1-1.5); Carbon Dioxide* 24 mmol/L (20-32); Est. Creatinine Clearance* 36.34; Estimated Glomerular Filt Rate 55 ml/min
[2023-06-13 16:15] LABS: Alanine Aminotransferase* 8 U/L (4-35); Alkaline Phosphatase* 84 U/L (40-150); Blood Urea Nitrogen* 21 mg/dL (7-30); Calcium* 10.3 mg/dL (8.4-10.6); Glucose* 85 mg/dL (60-115); Lipase* 175 U/L (23-300); Total Protein* 7.2 g/dL (6.0-8.3)
== END 2023-06-13 18:49 | disposition home or self-care (01) ==
PROVIDERS: Emergency Provider Emergency Medicine; PCP Family Medicine
DX: R07.9 Chest pain, unspecified (principal)
CPT/HCPCS: 36415; 71046; 80053; 83690; 84484; 85025; 85379; 93005; 94761; 99283; A9270

== ENCOUNTER 2023-07-11 13:49 | Outpatient (CLI) | payer MEDICARE, OTHER, SELFPAY | END 2023-07-11 13:50 | disposition home or self-care (01) | LOC: NFLDREF 13:50 | PROVIDERS: PCP Family Medicine; Visit Provider Family Medicine | DX: D64.9 Anemia, unspecified (principal); I10 Essential (primary) hypertension; E78.5 Hyperlipidemia, unspecified; E55.9 Vitamin D deficiency, unspecified; F41.9 Anxiety disorder, unspecified; F32.A Depression, unspecified | CPT/HCPCS: 80053; 80061; 82306; 82607; 82728; 83540; 83550 ==